=== PATIENT | male | born 1940 | race Caucasian/White ===

== ENCOUNTER → 2016-09-13 | Outpatient (CLI) | payer MEDICARE, OTHER ==
[~2016-09-13] MED LIST: AMLO10TA82 PO; AMLO5TAB2 PO; ASP325T PO; CHLO500T4 PO; CLPD75T PO; CPR500T PO; CYAN250010 PO; E400C PO; ENAL10TA PO; FISH1CAP15 PO; FNST5T PO; GUAI600T PO; HYDR-3812 PO; HYDR-91 PO; METO50TA7; MTP25TSR PO; MULT-608 PO; NAPR500T3 PO; NITR0.4T12 SL; NITR100C3 PO; OMEG1CAP51 PO; OMG1KC PO; PRAV40TA PO; PRAV80TA2 PO; RANO10003 PO; RANO500T3 PO; TMSL.4C PO; VITA1CAP59 PO; Vitamin B-6 PO
[2016-09-13 09:10] LABS: ALBUMIN 4.2 G/DL (3.2-4.5); BILIRUBIN,DIRECT 0.3 MG/DL (0.0-0.3); BILIRUBIN,INDIRECT 0.5 MG/DL; BILIRUBIN,TOTAL 0.8 MG/DL (0.1-1.0); TOTAL PROTEIN 6.7 G/DL (6.4-8.2)
== END ==
LOC: LAB 08:19
PROVIDERS: ATTEND Physician Assistant
DX: I25.10 Atherosclerotic heart disease of native coronary artery without angina pectoris (principal); I65.23 Occlusion and stenosis of bilateral carotid arteries; I10 Essential (primary) hypertension; E78.2 Mixed hyperlipidemia
CPT/HCPCS: 36415; 80061; 80076

== ENCOUNTER → 2016-11-01 | Outpatient (CLI) | payer MEDICARE, OTHER ==
--- NOTE | 2016-11-04 00:07 | ECHOCARDIOGRAPHY REPORT ---
PROCEDURE PHYSICIAN: YAIMA BRICEÑO DATE OF PROCEDURE: 11/01/2016 TWO DIMENSIONAL ECHOCARDIOGRAM REPORT PRIMARY PHYSICIAN: OTHER PHYSICIAN: REFERRING PHYSICIAN: Dr. Geovanna Hernández ORDERING PHYSICIAN: INDICATION FOR THE PROCEDURE: Coronary artery disease. MEASUREMENTS DERIVED VALUES LV DIAMETER (LAX) NORMALS NORMALS Diastolic 5.1 (3.6-5.2) Eject. Fract. 60% (60%+/-6%) Systolic (2.3-3.9) Diastolic Vol. % Shortening (0.22-0.42) Systolic Vol. Aortic Root IVS THICKNESS Diastolic 1.2 (0.6-1.1) LVPW THICKNESS Diastolic 1.1 (0.6-1.1) LA DIAMETER Systolic 3.7 (2.1-3.7) FINDINGS: 1. Technically suboptimal study. 2. The left ventricle is normal in size, endocardium was not well visualized in all segments. Overall, mild left ventricular hypertrophy was noted. Systolic function appeared to be normal. Estimated ejection fraction 60%. 3. The left atrium is normal in size. No clot or thrombus were seen within the left atrium. 4. The right atrium and right ventricle are normal in size. No clot or thrombus were seen within the right side. 5. Mitral valve is normal in morphology with mild mitral regurgitation noted by color Doppler flow. No mitral valve prolapse. No mitral valve stenosis. 6. Aortic valve is trileaflet with normal opening and closing pattern. No significant aortic stenosis or regurgitation was seen. 7. Tricuspid valve is normal in morphology with mild tricuspid regurgitation noted by color Doppler flow. Doppler across tricuspid valve estimated pulmonary artery pressure of 23+ right atrial pressure. 8. Pulmonic valve is functioning normally. 9. No pericardial effusion was noted. IN CONCLUSION: 1. Technically suboptimal study. 2. Mild left ventricular hypertrophy with normal systolic function. Estimated ejection fraction 60%. 3. Mild mitral and tricuspid regurgitation. 4. Estimated pulmonary artery pressure of 30 mmHg. Job ID: [id number] Dictated Date: 11/03/2016 10:49:40 Cream Maker Date: 11/04/2016 00:03:37 / rema
== END ==
LOC: CARD 13:35
PROVIDERS: ATTEND Physician Assistant
DX: I25.10 Atherosclerotic heart disease of native coronary artery without angina pectoris (principal); I65.23 Occlusion and stenosis of bilateral carotid arteries; I10 Essential (primary) hypertension; E78.2 Mixed hyperlipidemia
CPT/HCPCS: 93306

== ENCOUNTER → 2016-11-11 | Outpatient (CLI) | payer MEDICARE, OTHER ==
[~2016-11-11] VITALS: Ht 177.8 cm; Wt 96.6 kg
[~2016-11-11] MED LIST changes: +REGADENOSON 0.4 MG/5 ML SYR (LEXISCAN) IV ONE
[2016-11-11] MEDS: CATHETER FLUSH 10 ML SYR IV PRN ×2 (08:09→09:33)
[2016-11-11 09:32] VITALS: BP 154/78
--- NOTE | 2016-11-11 11:28 | STRESS TEST ---
PROCEDURE PHYSICIAN: YAIMA BRICEÑO LEXISCAN MYOVIEW STRESS TEST REPORT: DATE OF PROCEDURE: 11/11/2016 REFERRING PHYSICIAN: Dr. Geovanna Hernández, [facility]. INDICATION: Coronary artery disease, hypertension Baseline heart rate is 48, baseline blood pressure: 156/76. Baseline EKG: Sinus rhythm with no ischemic changes. SUMMARY: The patient was injected with 10.84 mCi of technetium 99 Myoview and the resting images were obtained. Then the patient received 0.4 mg of Lexiscan followed by 31.9 mCi of technetium 99 Myoview. Throughout the test, there were no significant EKG changes. The resting and stress images were reviewed and compared in the short axis, horizontal long axis, and vertical long axis views. Review of the images showed diaphragmatic attenuation affecting the quality of the images, there is no significant ischemia or infarction on SPECT images. SSS is 1, SDS 1, TID value 0.97. On the gated images, the left ventricle appeared to be normal size with normal contractility. Calculated ejection fraction 59%. CONCLUSION: 1. The patient tolerated Lexiscan well. 2. Diaphragmatic attenuation with no significant ischemia or infarction on SPECT images. 3. Normal left ventricular size with normal contractility. Calculated ejection fraction 59% Job ID: [id number] Dictated Date: 11/11/2016 11:08:05 Bet Taker Date: 11/11/2016 11:24:57 / tr
== END ==
LOC: CARD 07:57
PROVIDERS: ATTEND Physician Assistant
DX: I25.10 Atherosclerotic heart disease of native coronary artery without angina pectoris (principal); I65.23 Occlusion and stenosis of bilateral carotid arteries; I10 Essential (primary) hypertension; E78.2 Mixed hyperlipidemia
CPT/HCPCS: 78452; 93017

== ENCOUNTER 2017-04-24 09:44 | Day surgery (SDC) | payer MEDICARE ==
[~2017-04-24] VITALS: Ht 177.8 cm; Wt 91.6 kg
[2017-04-24] VITALS (9 sets, daily range): BP systolic 119–154; BP diastolic 3–83
[~2017-04-24 09:44] MED LIST changes: -NAPR500T3 PO; +NAPR500T4 PO; -REGADENOSON 0.4 MG/5 ML SYR (LEXISCAN) IV ONE
--- OUTSIDE RECORDS SUMMARY | 2017-04-24 09:52 | XMS REPORT ---
Author Author STEPAN MODI [facility] Address [address] [place] [address] Care Team Providers Care Sugar Coating Hand Name Role Phone LY STEPAN Unavailable PROBLEMS Type Condition ICD9-CM Code [id number] Code Onset Dates Condition Status SNOMED Code Problem Hyperlipidemia, mixed E78.2 Active 470116792 Problem Hypertension, benign I10 Active 66229989 Assessment Encounter for immunization Z23 Apr, Active 522165592 Problem Arthritis M19.90 Active 1107927 Assessment Pain of left heel M79.672 Apr, Active 0816120 ALLERGIES Substance Reaction Event Type Date Status N.K.D.A. Unknown Non Drug Allergy Apr, Unknown SOCIAL HISTORY No smoking Hx information available PLAN OF CARE VITAL SIGNS Height 70 in 2016-05-13 Weight 202.6 lbs 2016-05-13 Heart Rate 64 bpm 2016-05-13 Respiratory Rate 18 2016-05-13 BMI 29.07 kg/m2 2016-05-13 Blood pressure systolic 136 mmHg 2016-05-13 Blood pressure diastolic 78 mmHg 2016-05-13 MEDICATIONS Medication Instructions Dosage Frequency Start Date End Date Duration Status Fish Oil 1200 MG Orally Once a day 5 capsule 24h Active Amlodipine Besylate 10 MG TAKE ONE TABLET BY MOUTH DAILY 30 Active Pravastatin Sodium 40 MG Orally Once a day 1 tablet 24h Active Enalapril Maleate 10 MG TAKE ONE TABLET BY MOUTH TWICE DAILY 30 Active Naproxen 500 MG Orally every 12 hrs 1 tablet as needed 12h 17 Sep, 2015 Active Ranexa 500 MG 2 tablets 12h Feb, Active PredniSONE 20 mg Orally Once a day 2 tablets 24h Apr, May, 05 days Active Multivitamins 750 mg Orally once a day one capsule 24h Active RESULTS Name Result Date Reference Range Xray : Calcaneus, Left (IN HOUSE) 2016-05-13 PROCEDURES Procedure Date Ordered Related Diagnosis Body Site [facility] VISIT ESTABLISHED PATIENT May 13, 2016 Office Visit, Est Pt., Level 3 May 13, 2016 FLUZONE HIGH DOSE 65 AND UP 2015May 13, 2016 X-RAY EXAM OF HEEL May 13, 2016 SINGLE IMMUNIZATION ADMIN May 13, 2016 IMMUNIZATIONS Vaccine Route Administration Date Status FLUZONE HIGH DOSE 65 AND UP 2015 IM Intramuscular May 13, 2016 Administered
[2017-04-24] MEDS ORDERED: morphine INJ 10 MG/ML 1ML (SYR OR VIAL) IV STA (09:54)
--- NOTE | 2017-04-24 09:54 | ED Chest Pain ---
General Chief Complaint: Chest Pain Stated Complaint: CHEST PAIN/SOA Source: patient, spouse Exam Limitations: no limitations History of Present Illness Time seen by provider: 09:51 Initial Comments Patient has ER by private conveyance with chief complaint of one week intermittent mid sternal chest pressure and today now present with some shortness of breath. He says is the same way present before he had a heart attack several years ago when he had a stent placed by Dr. Shrestha. He is only on aspirin but no blood thinners. He has not had any nausea vomiting numbness tingling or sweats however he says this is the same way he presented last time. He says for 5 months ago he was having chest pressure like this and Dr. Shrestha increased his Ranexa from 500-1000 and that took care of the chest pressures until the last week. Allergies and Home Medications Allergies Coded Allergies: No Known Drug Allergies (Verified , 08/01/09) Home Medications Amlodipine Besylate 10 Mg Tablet, 10 MG PO DAILY, (Reported) Aspirin 325 Mg Tab, 325 MG PO HS, (Reported) Cyanocobalamin (Vitamin B-12) 2,500 Mcg Tablet, 2,500 MCG PO DAILY, (Reported) Enalapril Maleate 10 Mg Tablet, 10 MG PO BID, (Reported) Multivitamins 1 Tab Tablet, 1 TAB PO DAILY, (Reported) [place] 3 Polyunsat Fatty Acids 1,000 Mg Cap, 3,000 MG PO DAILY, (Reported) [place] 3 Polyunsat Fatty Acids 1,000 Mg Cap, 2,000 MG PO HS, (Reported) Pravastatin Sodium 80 Mg Tablet, 80 MG PO HS, (Reported) Ranolazine 1,000 Mg Tab.er.12h, 1,000 MG PO BID, (Reported) Vitamin E Acetate 400 Unit Capsule, 400 UNIT PO DAILY, (Reported) Review of Systems Constitutional: No chills, No diaphoresis, No fever, No malaise EENTM: No Eye Pain, No Ear Pain Respiratory: Denies Cough, Denies Shortness of Air Cardiovascular: See HPI, Chest Pain, Denies Palpitations, Denies Syncope Gastrointestinal: Denies Constipated, Denies Diarrhea, Denies Nausea, Denies Vomiting Genitourinary: Denies Discharge, Denies Drainage Musculoskeletal: No back pain, No joint pain Skin: No pruritus, No rash Psychiatric/Neurological: Denies Numbness, Denies Paresthesia Past Huckmyg-Majmkf-Fseodb Hx Immunizations Up To Date Date of Pneumonia Vaccine: Aug 18, 2007 Date of Influenza Vaccine: May 18, 2015 Reproductive System Hx Reproductive Disorders: No Sexually Transmitted Disease: No Genitourinary Genitourinary Disorders: Benign Prostatic Hyperpl, Prostate Problems, Kidney Stones Musculoskeletal Musculoskeletal Disorders: Arthritis Family Medical History Significant Family History: No Pertinent Family Hx Physical Exam Vital Signs Vital Sign - Last 12Hours 04/24/17 09:45 Temp 98.2 Pulse 69 Resp 18 B/P (MAP) 172/105 Capillary Refill : General Appearance: WD/WN, Anxious, Mild Distress HEENT: Normal ENT Inspection, Pharynx Normal Neck: Normal Inspection, Non Tender, Supple Respiratory: Chest Non Tender, Lungs Clear, Normal Breath Sounds Cardiovascular: Regular Rate, Rhythm, No Edema, Normal Peripheral Pulses Gastrointestinal: Normal Bowel Sounds, Non Tender, Soft Extremity: Normal Capillary Refill, Normal Inspection, No Pedal Edema Neurologic/Psychiatric: Alert, Oriented x3 Skin: Normal Color, Warm/Dry Progress/Results/Core Measures Results/Orders Lab Results Laboratory Tests Test 04/24/17 09:50 Range/Units White Blood Count 5.7 4.3-11.0 10^3/uL Red Blood Count 4.74 4.35-5.85 10^6/uL Hemoglobin 14.9 13.3-17.7 G/DL Hematocrit 43 40-54 % Mean Corpuscular Volume 92 80-99 FL Mean Corpuscular Hemoglobin 31 25-34 PG Mean Corpuscular Hemoglobin Concent 34 32-36 G/DL Red Cell Distribution Width 13.5 10.0-14.5 % Platelet Count 207 130-400 10^3/uL Mean Platelet Volume 11.5 H 7.4-10.4 FL Neutrophils (%) (Auto) 53 42-75 % Lymphocytes (%) (Auto) 31 12-44 % Monocytes (%) (Auto) 10 0-12 % Eosinophils (%) (Auto) 5 0-10 % Basophils (%) (Auto) 1 0-10 % Neutrophils # (Auto) 3.1 1.8-7.8 X 10^3 Lymphocytes # (Auto) 1.8 1.0-4.0 X 10^3 Monocytes # (Auto) 0.6 0.0-1.0 X 10^3 Eosinophils # (Auto) 0.3 0.0-0.3 10^3/uL Basophils # (Auto) 0.0 0.0-0.1 10^3/uL Prothrombin Time 13.2 12.2-14.7 SEC INR Comment 1.0 0.8-1.4 Activated Partial Thromboplast Time 27 24-35 SEC Sodium Level 141 135-145 MMOL/L Potassium Level 4.2 3.6-5.0 MMOL/L Chloride Level 108 H 98-107 MMOL/L Carbon Dioxide Level 24 21-32 MMOL/L Anion Gap 9 5-14 MMOL/L Blood Urea Nitrogen 12 7-18 MG/DL Creatinine 0.83 0.60-1.30 MG/DL Estimat Glomerular Filtration Rate > 60 BUN/Creatinine Ratio 14 Glucose Level 103 70-105 MG/DL Calcium Level 9.6 8.5-10.1 MG/DL Magnesium Level 2.0 1.8-2.4 MG/DL Total Bilirubin 0.9 0.1-1.0 MG/DL Aspartate Amino Transf (AST/SGOT) 17 5-34 U/L Alanine Aminotransferase (ALT/SGPT) 22 0-55 U/L Alkaline Phosphatase 53 40-136 U/L Myoglobin 36.8 10.0-92.0 NG/ML Troponin I < 0.30 <0.30 NG/ML Total Protein 6.7 6.4-8.2 GM/DL Albumin 4.1 3.2-4.5 GM/DL My Orders Orders - BETTYE,FERDINAND J Ekg Tracing (04/24/17 09:48) Cbc With Automated Diff (04/24/17 09:54) Magnesium (04/24/17 09:54) Chest 1 View, Ap/Pa Only (04/24/17 09:54) Cardiac Profile 1 (04/24/17 09:54) Comprehensive Metabolic Panel (04/24/17 09:54) Myoglobin Serum (04/24/17 09:54) Protime With Inr (04/24/17 09:54) Partial Thromboplastin Time (04/24/17 09:54) O2 (04/24/17 09:54) Monitor-Rhythm Ecg Trace Only (04/24/17 09:54) Lipid Panel (04/25/17 06:00) Aspirin Chewable Tablet (Baby Aspirin Ch (04/24/17 10:00) Rx-Nitroglycerin Sl Tabs (Rx-Nitrostat S (04/24/17 10:00) Morphine Injection (Morphine Injection (04/24/17 09:54) Saline Lock/Iv-Start (04/24/17 09:54) Enoxaparin Injection (Lovenox Injection) (04/24/17 11:45) Medications Given in ED Current Medications Medications Dose Ordered Sig/Daniel Route Start Time Stop Time Status Last Admin Dose Admin Aspirin 324 mg ONCE ONCE PO 04/24/17 10:00 04/24/17 10:01 DC 04/24/17 10:04 324 MG Nitroglycerin 0.4 mg PRN PRN SL 04/24/17 10:00 04/24/17 12:38 DC 04/24/17 10:04 0.4 MG Vital Signs/I&O Vital Sign - Last 12Hours 04/24/17 04/24/17 04/24/17 09:45 09:45 09:45 Temp 98.2 Pulse 69 Resp 18 B/P (MAP) 172/105 Pulse Ox 97 97 O2 Delivery Nasal Cannula Nasal Cannula O2 Flow Rate 2.00 2.0 ECG Initial ECG Impression Date: Apr 24, 2017 Initial ECG Impression Time: 09:49 Initial ECG Rate: 69 Initial ECG Rhythm: Normal Sinus Initial ECG Intervals: Normal Initial ECG Impression: Nonspecific Changes Initial ECG Comparisson: Unchanged Comment No acute ST elevation or depression Diagnostic Imaging Diagonstic Imaging: Xray Plain Films/CT/US/NM/MRI: chest Comments VIA [place], [place] NAME: DAIJA ADHIKARI [facility] REC#: [id number] PT STATUS: REG ER : 1940 PHYSICIAN: FERDINAND WEN MD ADMIT DATE: 04/24/17/ER Draft Date of Exam:04/24/17 CHEST 1 VIEW, AP/PA ONLY EXAMINATION: CHEST 1 VIEW, AP/PA ONLY INDICATION: Chest pain. Shortness of breath. COMPARISON: Chest radiograph 11/16/2014. FINDINGS: Normal heart size and pulmonary vascularity. Mild atelectasis or infiltrate in the medial right lung base. No dense consolidation, pleural effusion, or pneumothorax. Calcified aorta. No acute osseous findings. IMPRESSION: Mild atelectasis or infiltrate in the medial right lung base. There is no dense consolidation. Dictated on workstation # [id number] Dict: 04/24/17 1026 Trans: 04/24/17 1030 [facility] [id number] Interpreted by: CALOS OSULLIVAN MD Electronically signed by: Reviewed: Reviewed by Me Departure Communication (Admissions) Time/Spoke to Admitting Phy: 11:[address] Susna Mata is okay with admission but would like us to speak with Dr. Shrestha see if maybe the patient to the catheter today. Time/Spoke to Consulting Phy: 11:30 Communication/Consulting Dr Shrestha: Lovenox is okay and he'll see the patient but he does not feel the patient needs any emergent catheter however he might go have time to get him in later today. Impression Impression: Primary Impression: Chest pain Qualified Codes: R07.9 - Chest pain, unspecified Additional Impressions: Chest tightness or pressure ACS (acute coronary syndrome) Disposition: ADMITTED INPATIENT (observation) Condition: Stable Admissions Decision to Admit Reason: Admit from ER (General) Decision to Admit/Date: Apr 24, 2017 Time/Decision to Admit Time: 11:31 Departure-Patient Inst. Referrals: LATISHA THOMSON DO (PCP) Primary Care Physician STEPAN MODI (Family) Primary Care Physician Copy Copies To 1: LATISHA THOMSON TITUS J Apr 24, 2017 09:54
[2017-04-24] MEDS ORDERED: ASPIRIN 81 MG CHEW (CHILDREN'S ASA) PO ONE (10:00)
[2017-04-24] MEDS ORDERED: RX-NITROGLYCERIN 0.4 MG TAB BTL 25'S SL PRN (10:00)
[2017-04-24 10:07] LABS: BASOPHILS % (AUTO) 1 % (0-10); EOSINOPHILS # (AUTO) 0.3 10^3/uL (0.0-0.3); EOSINOPHILS % (AUTO) 5 % (0-10); LYMPHOCYTES # (AUTO) 1.8 X 10^3 (1.0-4.0); LYMPHOCYTES % (AUTO) 31 % (12-44); MEAN CORPUSCULAR HEMOGLOBIN 31 PG (25-34); MEAN CORPUSCULAR HGB CONC 34 G/DL (32-36); MEAN CORPUSCULAR VOLUME 92 FL (80-99); MEAN PLATELET VOLUME 11.5 FL (7.4-10.4); MONOCYTES # (AUTO) 0.6 X 10^3 (0.0-1.0); MONOCYTES % (AUTO) 10 % (0-12); NEUTROPHILS # (AUTO) 3.1 X 10^3 (1.8-7.8); NEUTROPHILS % (AUTO) 53 % (42-75); PLATELET COUNT 207 10^3/uL (130-400); RED BLOOD COUNT 4.74 10^6/uL (4.35-5.85); RED CELL DISTRIBUTION WIDTH 13.5 % (10.0-14.5); WHITE BLOOD COUNT 5.7 10^3/uL (4.3-11.0)
[2017-04-24 10:24] LABS: PROTHROMBIN TIME PATIENT 13.2 SEC (12.2-14.7)
[2017-04-24 10:29] LABS: ALANINE AMINOTRANSFERASE 22 U/L (0-55); ALBUMIN 4.1 GM/DL (3.2-4.5); ANION GAP 9 MMOL/L (5-14); ASPARTATE AMINO TRANSFERASE 17 U/L (5-34); BILIRUBIN,TOTAL 0.9 MG/DL (0.1-1.0); BLOOD UREA NITROGEN 12 MG/DL (7-18); BUN/CREATININE RATIO 14; CALCIUM 9.6 MG/DL (8.5-10.1); CARBON DIOXIDE 24 MMOL/L (21-32); CHLORIDE 108 MMOL/L (98-107); CREATININE SERUM 0.83 MG/DL (0.60-1.30); GFR ESTIMATED > 60; GLUCOSE 103 MG/DL (70-105); POTASSIUM 4.2 MMOL/L (3.6-5.0); SODIUM 141 MMOL/L (135-145); TOTAL PROTEIN 6.7 GM/DL (6.4-8.2)
--- NOTE | 2017-04-24 10:31 | Diagnostic Imaging Report ---
EXAMINATION: CHEST 1 VIEW, AP/PA ONLY INDICATION: Chest pain. Shortness of breath. COMPARISON: Chest radiograph 11/16/2014. FINDINGS: Normal heart size and pulmonary vascularity. Mild atelectasis or infiltrate in the medial right lung base. No dense consolidation, pleural effusion, or pneumothorax. Calcified aorta. No acute osseous findings. IMPRESSION: Mild atelectasis or infiltrate in the medial right lung base. There is no dense consolidation. Dictated by: Dictated on workstation # [id number]
[2017-04-24 10:36] LABS: MYOGLOBIN SERUM 36.8 NG/ML (10.0-92.0)
[2017-04-24] MEDS ORDERED: ENOXAPARIN 100 MG/1 ML (LOVENOX) SYR SC ONE (11:45)
[2017-04-24] MEDS ORDERED: NS IV 1000 ML 0 ML ONE (12:31)
--- NOTE | 2017-04-24 12:40 | Consultation-Cardiology ---
HPI-Cardiology Cardiology Consultation Date of Consultation 04/24/17 Date of Admission Time Seen by Provider: 12:38 Indication: chest pain HPI 77 years old gentleman with extensive cardiac history, has been having increasing chest pain, I started him on Ranexa with improvement of his chest pain, on the last visit in October 2016 I increased Ranexa to 1000 mg twice daily and he felt significantly better until about a week ago when he started having more frequent episodes of chest pain on and off with exertion, recently started having shortness of breath with the chest pain, this morning had more significant episode where he felt dull achiness in the retrosternal area associated with shortness of breath and dizziness and lightheadedness. Patient came to the emergency room and felt better after sublingual nitroglycerin, currently laying down in bed but fairly anxious about his condition. Patient underwent extensive workup in the past. Currently having chest pain while on maximizing medical therapy. We discussed the management plan and I recommended evaluating his coronary anatomy with cardiac catheterization. Home Medications & Allergies Allergies: Coded Allergies: No Known Drug Allergies (Verified , 08/01/09) Home Medication List Reviewed: Yes AQZ-Icglbx-Aouzla Hx Patient Social History Marital Status: Employed/Student: retired Alcohol Use: Denies Use Recreational Drug Use: No Smoking Status: Never a Smoker Recent Foreign Travel: No Recent Infectious Disease Expo: No Recent Hopitalizations: No (SURGERIES/HEART STENT) Physical Abuse Screen: No Sexual Abuse: No Immunizations Up To Date Date of Pneumonia Vaccine: Aug 18, 2007 Date of Influenza Vaccine: May 18, 2015 Past Medical History Past medical history as discussed Family Medical History Significant Family History: No Pertinent Family Hx Family History: 19 FATHER Congenital disease 19 MOTHER Neoplasm (maybe colon cancer) Diabetes mellitus G8 BROTHER Neoplasm (lung cancer) Constitutional: see HPI, weakness EENTM: see HPI, no symptoms reported Respiratory: see HPI, No cough, dyspnea on exertion, No hemoptysis, No orthopnea, No phlegm, short of breath, No stridor, No wheezing, No other Cardiovascular: see HPI, chest pain, No edema, No Hx of Intervention, No palpitations, No syncope, No vascular heart diseas, No other Gastrointestinal: no symptoms reported, see HPI Genitourinary: no symptoms reported, see HPI Musculoskeletal: no symptoms reported, see HPI Skin: no symptoms reported, see HPI Psychiatric/Neurological: No Symptoms Reported, See HPI Reviewed Test Results Reviewed Test Results Lab Laboratory Tests Test 04/24/17 09:50 Range/Units White Blood Count 5.7 4.3-11.0 10^3/uL Red Blood Count 4.74 4.35-5.85 10^6/uL Hemoglobin 14.9 13.3-17.7 G/DL Hematocrit 43 40-54 % Mean Corpuscular Volume 92 80-99 FL Mean Corpuscular Hemoglobin 31 25-34 PG Mean Corpuscular Hemoglobin Concent 34 32-36 G/DL Red Cell Distribution Width 13.5 10.0-14.5 % Platelet Count 207 130-400 10^3/uL Mean Platelet Volume 11.5 H 7.4-10.4 FL Neutrophils (%) (Auto) 53 42-75 % Lymphocytes (%) (Auto) 31 12-44 % Monocytes (%) (Auto) 10 0-12 % Eosinophils (%) (Auto) 5 0-10 % Basophils (%) (Auto) 1 0-10 % Neutrophils # (Auto) 3.1 1.8-7.8 X 10^3 Lymphocytes # (Auto) 1.8 1.0-4.0 X 10^3 Monocytes # (Auto) 0.6 0.0-1.0 X 10^3 Eosinophils # (Auto) 0.3 0.0-0.3 10^3/uL Basophils # (Auto) 0.0 0.0-0.1 10^3/uL Prothrombin Time 13.2 12.2-14.7 SEC INR Comment 1.0 0.8-1.4 Activated Partial Thromboplast Time 27 24-35 SEC Sodium Level 141 135-145 MMOL/L Potassium Level 4.2 3.6-5.0 MMOL/L Chloride Level 108 H 98-107 MMOL/L Carbon Dioxide Level 24 21-32 MMOL/L Anion Gap 9 5-14 MMOL/L Blood Urea Nitrogen 12 7-18 MG/DL Creatinine 0.83 0.60-1.30 MG/DL Estimat Glomerular Filtration Rate > 60 BUN/Creatinine Ratio 14 Glucose Level 103 70-105 MG/DL Calcium Level 9.6 8.5-10.1 MG/DL Magnesium Level 2.0 1.8-2.4 MG/DL Total Bilirubin 0.9 0.1-1.0 MG/DL Aspartate Amino Transf (AST/SGOT) 17 5-34 U/L Alanine Aminotransferase (ALT/SGPT) 22 0-55 U/L Alkaline Phosphatase 53 40-136 U/L Myoglobin 36.8 10.0-92.0 NG/ML Troponin I < 0.30 <0.30 NG/ML Total Protein 6.7 6.4-8.2 GM/DL Albumin 4.1 3.2-4.5 GM/DL Physical Exam Vital Signs Vital Sign - Last 12Hours 04/24/17 09:45 Temp 98.2 Pulse 69 Resp 18 B/P (MAP) 172/105 Capillary Refill : Less Than 3 Seconds General Appearance: No Apparent Distress, WD/WN Eyes: Bilateral Eye Normal Inspection, Bilateral Eye PERRL, Bilateral Eye EOMI HEENT: PERRL/EOMI, TMs Normal, Normal ENT Inspection, Pharynx Normal Neck: Full Range of Motion, Normal Inspection, Non Tender, Supple, Carotid Bruit Respiratory: Chest Non Tender, Lungs Clear, Normal Breath Sounds, No Accessory Muscle Use, No Respiratory Distress Cardiovascular: Regular Rate, Rhythm, No Edema, No Gallop, No JVD, No Murmur, Normal Peripheral Pulses Gastrointestinal: Normal Bowel Sounds, No Organomegaly, No Pulsatile Mass, Non Tender, Soft Back: Normal Inspection, No CVA Tenderness, No Vertebral Tenderness Extremity: Normal Capillary Refill, Normal Inspection, Normal Range of Motion, Non Tender, No Calf Tenderness, No Pedal Edema Neurologic/Psychiatric: Alert, Oriented x3, No Motor/Sensory Deficits, Normal Mood/Affect Skin: Normal Color, Warm/Dry Lymphatic: No Adenopathy A/P-Cardiology Admission Diagnosis Accelerating angina Coronary artery disease Hypertension Hyperlipidemia Assessment/Plan Chest pain, accelerating angina, patient reported improvement after increasing Ranexa to 1000 mg twice daily but for the last week it became worse and associated with shortness of breath. Had significant episode this morning, I will proceed with cardiac catheterization possible PTCA Coronary artery disease, history of PTCA and stent done in 2008 using Promus 3.0x18 mm to the obtuse marginal, last cardiac catheterization was done in November 2014 showing patent stent in the obtuse marginal branch, mild disease in the LAD and circumflex artery, mild to moderate disease in the right coronary artery with 50 percent stenosis at the midportion, normal LV size and function. Planning to evaluate coronary anatomy. Labile hypertension, I will restart home medication monitor blood pressure History of sick sinus syndrome with intolerance to beta blockers, continue to monitor on telemetry Hyperlipidemia, restart home medication monitor lipid Intolerance to isosorbide with hypotension. Benign prostatic hypertrophy. Mild bilateral carotid stenosis. Continue to monitor Mild pedal edema-discussed salt and fluid restriction. Clinical Quality Measures AMI/AHF: ASA po Prior to arrival: No DVT/VTE Risk/Contraindication: Risk Factor Score Per Nursin RFS Level Per Nursing on Admit: 2=Moderate YAIMA BRICEÑO MD Apr 24, 2017 12:40
--- NOTE | 2017-04-24 12:40 | Cardiac Procedure Note-CS/ASA ---
Pre-Procedure Note Pre-Op Procedure Note H&P Reviewed The H&P was reviewed, patient examined and no changes noted. Date H&P Reviewed: Apr 24, 2017 Time H&P Reviewed: 12:40 Conscious Sedation Pre-Proced Time Reviewed: 12:40 ASA Class: 3 Airway Mallampati Classification: (beaver appropriate class) I. II. III, IV Lungs Heart ASA score ASA 1: a normal healthy patient ASA 2: a patient with a mild systemic disease (mid diabetes, controlled hypertension, obesity x ASA 3: a patient with a severe systemic disease that limits activity (angina , COPD, prior Myocardial infarction) ASA 4: a patient with an incapacitating disease that is a constant threat to life (CHF, renal failure) ASA 5: a moribund patient not expected to survive 24 hrs. (ruptured aneurysm) ASA 6: a declared brain patient whose organs are being harvested. For emergent operations, add the letter E after the classification Grade 3 Sedation Plan: Analgesia, Amnesia, Plan communicated to team members, Discussed options with patient/fam, Discussed risks with patient/fam Note The patient is an appropriate candidate to undergo the planned procedure, sedation, and anesthesia. The patient immediately re-assessed prior to indication. YAIMA BRICEÑO MD Apr 24, 2017 12:40
[2017-04-24] MEDS ORDERED: NS IV 1000 ML 1,000 ML IV SCH (12:45)
[2017-04-24] MEDS ORDERED: HEParin (CATH LAB) 2,000 ML IV ONE (12:56)
[2017-04-24] MEDS ORDERED: NITROGLYCERIN SUBLINGUAL 0.4 MG TAB (NITROSTAT) SL PRN (13:15)
[2017-04-24] MEDS ORDERED: morphine INJ 4 MG/ML 1 ML (VIAL/SYRINGE) IV PRN (13:15)
[2017-04-24] MEDS ORDERED: ACETAMINOPHEN 500 MG TAB (TYLENOL) PO PRN (13:15)
[2017-04-24] MEDS ORDERED: CATHETER FLUSH 10 ML SYR IV PRN (13:15)
[2017-04-24] MEDS ORDERED: ONDANSETRON 4 MG/2 ML (SDV) Z0FRAN IV PRN (13:15)
[2017-04-24] MEDS ORDERED: PRAV80TA2 PO (15:27)
[2017-04-24] MEDS ORDERED: OMG1KC PO ×2 (15:35)
[2017-04-24] MEDS ORDERED: RANO10003 PO (15:35)
[2017-04-24] MEDS ORDERED: MIDAZOLAM 5 MG/5 ML (VERSED) VIAL ONE (16:24)
[2017-04-24] MEDS ORDERED: NS IV 1000 ML 1,000 ML ONE (16:24)
[2017-04-24] MEDS ORDERED: fentaNYL INJECTION 100 MCG/2 ML AMP ONE (16:24)
--- NOTE | 2017-04-24 17:24 | Cardiac Cath Report ---
Cardiac Cath Report Physician (s)/Graphite Pan Drier Tender (s) Physician YAIMA BRICEÑO MD Pre-Procedure Diagnosis Pre-Procedure Diagnosis: chest pain Post-Procedure Note Procedure Start Date: Apr 24, 2017 Procedure Start Time: 17:20 Name of Procedure: left heart catheterization Findings/Procedure Note PROCEDURE NOTE: After explaining the procedure to the patient, all pros and cons were explained, all questions were answered. The patient signed the consent and then she was placed on the cardiac catheterization laboratory. The patient was placed on the cardiac catheterization laboratory. Groin was prepped SL fashion local anesthesia was used. Sheath placed in the artery. Ruby right and left catheter were used to access the coronary system. Pigtail was used to access the left ventricular cavity. Left ventriculogram was done At the end of the procedure the sheath was removed. Closure device was used FINDINGS: Hemodynamics LV 132/14, end-diastolic pressure of 14 Aorta 129/65 mean of 91 ANATOMY: Left Main is free of obstructive disease Left Anterior Descending is tortuous with mild disease nonobstructive disease Left Circumflex has a patent stent in the first obtuse marginal branch, small vessel disease in the proper circumflex artery distally Right Coronory Artery has [id number]-[id number] disease 40-50 percent stenosis at most in the mid and distal right coronary artery LV Gram was done, normal left ventricular size and contractility with estimated ejection fraction 60 percent CONCLUSION: 1. Patent stent in the first obtuse marginal branch, known to have Promus stent 3.018 mm. 2. Small vessel disease in the distal circumflex artery, nonobstructive disease 3. 40-50 percent stenosis in the mid right coronary artery, nonobstructive disease 4. Tortuous LAD with mild disease nonobstructive disease 5. Normal left ventricular size and systolic function estimated ejection fraction 60 percent DISCUSSION AND RECOMMENDATION: patient has been having chest pain probably due to small vessel disease, medical therapy is recommended no intervention is warranted. Anesthesia Type: Conscious Sedation Estimated blood loss (mL): 10 ml Contrast Amount: 70 ml Total Radiation Dose: 679 mGy Post-Procedure Diagnosis Post-operative diagnosis: Chest pain, nonspecific etiology Coronary artery disease Hypertension Hyperlipidemia YAIMA BRICEÑO MD Apr 24, 2017 17:24
[2017-04-24] MEDS ORDERED: PATIENT MAY USE OWN MEDS, ALL PO SCH (17:30)
[2017-04-24] MEDS ORDERED: ATORVASTATIN 40 MG (LIPITOR) TABLET PO SCH (21:00)
[2017-04-24] MEDS: NS IV 1000 ML 1,000 ML IV SCH (21:41)
[2017-04-24] MEDS: meTOprolol TARTRATE 25 MG (LOPRESSOR) TABLET PO SCH (21:41)
[2017-04-25] MEDS ORDERED: ENOXAPARIN 100 MG/1 ML (LOVENOX) SYR SC SCH
[2017-04-25 04:30] VITALS: BP 135/72
[2017-04-25] MEDS: NS IV 1000 ML 1,000 ML IV SCH ×2 (06:04→07:18)
[2017-04-25 06:32] LABS: BASOPHILS % (AUTO) 1 % (0-10); EOSINOPHILS # (AUTO) 0.2 10^3/uL (0.0-0.3); EOSINOPHILS % (AUTO) 3 % (0-10); LYMPHOCYTES # (AUTO) 1.9 X 10^3 (1.0-4.0); LYMPHOCYTES % (AUTO) 35 % (12-44); MEAN CORPUSCULAR HEMOGLOBIN 32 PG (25-34); MEAN CORPUSCULAR HGB CONC 34 G/DL (32-36); MEAN CORPUSCULAR VOLUME 92 FL (80-99); MEAN PLATELET VOLUME 11.7 FL (7.4-10.4); MONOCYTES # (AUTO) 0.5 X 10^3 (0.0-1.0); MONOCYTES % (AUTO) 9 % (0-12); NEUTROPHILS # (AUTO) 2.9 X 10^3 (1.8-7.8); NEUTROPHILS % (AUTO) 52 % (42-75); PLATELET COUNT 194 10^3/uL (130-400); RED BLOOD COUNT 4.31 10^6/uL (4.35-5.85); RED CELL DISTRIBUTION WIDTH 13.4 % (10.0-14.5); WHITE BLOOD COUNT 5.5 10^3/uL (4.3-11.0)
[2017-04-25 06:52] LABS: ANION GAP 9 MMOL/L (5-14); BLOOD UREA NITROGEN 13 MG/DL (7-18); BUN/CREATININE RATIO 16; CALCIUM 8.7 MG/DL (8.5-10.1); CARBON DIOXIDE 21 MMOL/L (21-32); CHLORIDE 111 MMOL/L (98-107); CREATININE SERUM 0.79 MG/DL (0.60-1.30); GFR ESTIMATED > 60; GLUCOSE 95 MG/DL (70-105); POTASSIUM 4.1 MMOL/L (3.6-5.0); SODIUM 141 MMOL/L (135-145)
[2017-04-25 06:56] LABS: CHOLESTEROL 150 MG/DL (< 200); DIRECT LDL 92 MG/DL (1-129); TRIGLYCERIDES 83 MG/DL (<150); VLDL CHOLESTEROL 17 MG/DL (5-40)
[2017-04-25 08:00] VITALS: BP 138/68
[2017-04-25] MEDS: meTOprolol TARTRATE 25 MG (LOPRESSOR) TABLET PO SCH (08:56)
[2017-04-25] MEDS ORDERED: ASPIRIN E.C. 325 MG (ECOTRIN) TABLET PO SCH (09:00)
[2017-04-25] MEDS ORDERED: lisINopril 10 MG (PRINIVIL) TAB PO SCH (09:00)
[2017-04-25] MEDS ORDERED: VITAMIN E 400 INTLU CAP PO SCH (09:56)
[2017-04-25] MEDS ORDERED: MULTIVIT W/MINERALS TAB (THERAGRAN M) PO SCH (10:04)
[2017-04-25] MEDS ORDERED: OMEGA 3 (FISH OIL) 1000 MG CAP PO SCH ×2 (10:10→21:00)
[2017-04-25] MEDS ORDERED: RANOLAZINE ER 500 MG TAB (RANEXA) PO SCH (10:11)
[2017-04-25] MEDS ORDERED: CYANOCOBALAMIN 500 MCG TAB (VITAMIN B-12) PO SCH (10:15)
--- NOTE | 2017-04-25 10:32 | Short Stay Summary ---
HPI History of Present Illness: 77 year old male with known CAD with hx of cardiac stent placed in 2008 presented with chest pain. Cardiology was consulted and the patient was taken to the photographic laboratory technician. The patient has known CAD and with angina unrelieved by rest. Source: patient, family Exam Limitations: no limitations Date seen by provider: Apr 25, 2017 Time Seen by Provider: 10:45 Attending Physician Susan Mata MD PCP Geovanna Hernández DO Consult Dr. Shrestha, Cardiology Date of Admission Apr 24, 2017 at 11:35 Home Medications Home Medications Reviewed patient Home Medication Reconciliation Form Allergies Coded Allergies: No Known Drug Allergies (Verified , 08/01/09) MCP-Mhyazy-Jsicyk Hx Patient Social History Marrital Status: Employed/Student: retired Alcohol Use: Denies Use Recreational Drug Use: No Smoking Status: Never a Smoker Recent Foreign Travel: No Contact w/other who traveled: No Recent Hopitalizations: No (SURGERIES/HEART STENT) Recent Infectious Disease Expo: No Physical Abuse Screen: No Sexual Abuse: No Immunizations Up To Date Tetanus Booster (TDap): Unknown Date of Pneumonia Vaccine: Aug 18, 2007 Date of Influenza Vaccine: May 18, 2015 Past Medical History CAD HTN Dyslipidemia Family Medical History Significant Family History: No Pertinent Family Hx Family History: Congenital disease 19 FATHER Diabetes mellitus 19 MOTHER Neoplasm 19 MOTHER (maybe colon cancer) G8 BROTHER (lung cancer) Review of Systems ([facility]) Constitutional: no symptoms reported EENTM: see HPI Respiratory: no symptoms reported Cardiovascular: no symptoms reported (no symptoms reported at the time of exam , pt with + chest pain at the time of presentation) Gastrointestinal: no symptoms reported Genitourinary: no symptoms reported Musculoskeletal: no symptoms reported Skin: no symptoms reported Psychiatric/Neurological: No Symptoms Reported Reviewed Test Results Reviewed Test Results Lab Laboratory Tests 04/25/17 06:[address] Shrestha done 04/24 - stent placed in 2008 remains patent, no interventions performed Physical Exam-([facility]) Physical Exam Vital Signs VS - Last 72 Hours, by Label 04/24/17 04/24/17 04/24/17 04/24/17 09:45 09:45 09:45 12:00 Temp 98.2 Pulse 69 50 Resp 18 18 B/P (MAP) 172/105 Pulse Ox 97 97 97 O2 Delivery Nasal Cannula Nasal Cannula Nasal Cannula O2 Flow Rate 2.00 2.0 2.00 04/24/17 04/24/17 04/24/17 04/24/17 12:15 15:05 16:00 17:45 Temp 98.1 Pulse 58 49 Resp 20 B/P (MAP) 154/80 124/70 Pulse Ox 95 94 O2 Delivery Room Air Nasal Cannula Room Air Room Air O2 Flow Rate 2.00 04/24/17 04/24/17 04/24/17 04/24/17 18:00 18:15 18:30 19:00 Pulse 49 50 47 49 B/P (MAP) 126/69 119/66 126/66 128/67 Pulse Ox 95 95 96 95 O2 Delivery Room Air 04/24/17 04/24/17 04/24/17 04/24/17 19:00 19:30 20:00 23:15 Temp 97.7 98.8 Pulse 46 66 49 51 Resp 20 20 B/P (MAP) 132/83 126/71 124/68 Pulse Ox 94 96 97 O2 Delivery Room Air Room Air 04/25/17 04/25/17 04/25/17 01:00 04:30 08:00 Temp 97.2 98.8 Pulse 43 53 63 Resp 18 20 B/P (MAP) 135/72 138/68 Pulse Ox 98 96 O2 Delivery Room Air Room Air Capillary Refill : Less Than 3 Seconds General Appearance: WD/WN, no apparent distress Eyes: Bilateral Eye Normal Inspection HEENT: normal ENT inspection, pharynx normal Neck: non-tender, full range of motion, supple Respiratory: chest non-tender, lungs clear, normal breath sounds, no respiratory distress Cardiovascular: normal peripheral pulses, regular rate, rhythm, no JVD, no murmur Gastrointestinal: non tender, soft Rectal: deferred Back: normal inspection, no vertebral tenderness Extremities: normal range of motion, non-tender, normal inspection, normal capillary refill, other (femoral cath site covered with clean, dry dressing; no evidence of active bleeding or hematoma) Neurologic/Psychiatric: new vehicle sales consultant II-XII nml as tested, alert, normal mood/affect, oriented x 3 Skin: normal color, warm/dry Lymphatic: no adenopathy Short Stay Diagnosis Discharge Diagnosis-Short Stay Admission Diagnosis Angina Final Discharge Diagnosis Coronary Artery Disease HTN Hyperlipidemia Conclusion Plan Patient had a no intervention cath performed yesterday evening. He tolerated the procedure well. This morning he is without chest pain or pressure, shortness of breath, palpitations, or any other complaints. He feels ready for discharge. We will discharge him to home with plans to have him follow up in the office on Friday at 3:00. Pt is not to be discharged until cleared by cardiology for discharge to home as well. Clinical Quality Measures AMI/AHF: ASA po Prior to arrival: No DVT/VTE Risk/Contraindication: Risk Factor Score Per Nursin RFS Level Per Nursing on Admit: 2=Moderate ELIAS SALEH DO Apr 25, 2017 10:32
[2017-04-25] MEDS ORDERED: METO-333 PO (10:41)
--- NOTE | 2017-04-25 10:50 | Discharge Instructions ---
Discharge [facility] Discharge Medications New, Converted or Re-Newed RX: Transmitted to Pharmacy New Medications: Metoprolol Tartrate (Metoprolol Tartrate) 25 Mg Tablet 25 MG PO BID for 30 Days, #60 TAB 1 Refill Continued Medications: Amlodipine Besylate (Norvasc Tablet) 10 Mg Tablet 10 MG PO DAILY, TAB Aspirin (Aspirin 325 Mg Tab) 325 Mg Tab 325 MG PO HS, TAB Cyanocobalamin (Vitamin B-12) (Vitamin B12) 2,500 Mcg Tablet 2500 MCG PO DAILY, TAB Enalapril Maleate (Enalapril Maleate) 10 Mg Tablet 10 MG PO BID, TAB Multivitamins (Multiple Vitamin) 1 Tab Tablet 1 TAB PO DAILY, TAB [place] 3 Polyunsat Fatty Acids (Fish Oil 1,000 mg Capsule) 1,000 Mg Cap 3000 MG PO DAILY, CAP [place] 3 Polyunsat Fatty Acids (Fish Oil 1,000 mg Capsule) 1,000 Mg Cap 2000 MG PO HS, CAP Pravastatin Sodium (Pravastatin Sodium) 80 Mg Tablet 80 MG PO HS, TAB Ranolazine (Ranexa) 1,000 Mg Tab.er.12h 1000 MG PO BID, TAB Vitamin E Acetate (Vitamin E) 400 Unit Capsule 400 UNIT PO DAILY, CAP Patient Instructions Goal/Follow Up Appt: Sunday 04/29 3:[address] Saleh at [facility] Please follow up with Dr. Shrestha per his instructions Patient Instructions: Take medications as directed Return to The Hospital For: chest pain or pressure, shortness of breath, fever > 100.4 unrelieved by tylenol, bleeding from cath site not controlled with pressure or if directed to return by microfabrication engineer manager provider Activity & Diet Discharge Diet: Low Sodium Diet, Cardiac Diet Activity as Tolerated: Yes ELIAS SALEH DO Apr 25, 2017 10:50
--- NOTE | 2017-04-25 11:00 | Cardiology Progress Note ---
Subjective Date Seen by Provider: Apr 25, 2017 Time Seen by Provider: 10:58 Subjective/Events-last exam patient is laying down in bed, feeling better, denied any active chest pain, no shortness of breath. Groin is healing well. Review of Systems General: No Chills, No Night Sweats, No Fatigue, No Malaise, No Appetite, No Other HEENT: No Head Aches, No Visual Changes, No Eye Pain, No Ear Pain, No Dysphasia , No Sinus Congestion, No Post Nasal Drip, No Sore Throat, No Other Pulmonary: No Dyspnea, No Cough, No Pleuritic Chest Pain, No Other Cardiovascular: No: Chest Pain, Palpitations, Orthopnea, Paroxysmal Noc. Dyspnea, Edema, Lt Headedness, Other Objective-Cardiology Exam Last Set of Vital Signs Vital Signs 04/24/17 04/25/17 15:05 08:00 Temp 98.8 Pulse 63 Resp 20 B/P (MAP) 138/68 Pulse Ox 96 O2 Delivery Room Air O2 Flow Rate 2.00 Capillary Refill : Less Than 3 Seconds I&O Intake and Output 04/26/17 00:00 Intake Total 1100 ml Balance 1100 ml Intake Oral 100 ml IV Total 1000 ml # Voids 1 General: Alert, Oriented X3, Cooperative HEENT: Atraumatic, PERRLA Neck: Supple, No JVD, No Thyromegaly Lungs: Clear to Auscultation, Normal Air Movement Heart: Regular Rate, Normal S1, Normal S2, Other (systolic murmur at the left sternal border) Abdomen: Normal Bowel Sounds, Soft, No Tenderness, No Hepatosplenomegaly, No Masses Extremities: No Clubbing, No Cyanosis, No Edema, Normal Pulses, No Tenderness/ Swelling Skin: No Rashes, No Breakdown, No Significant Lesion Neuro: Normal Gait, Normal Speech, Strength at 5/5 X4 Ext, Normal Tone, Sensation Intact Psych/Mental Status: Mental Status NL, Mood NL Results Lab Laboratory Tests 04/25/17 06:25 A/P-Cardiology Admission Diagnosis Accelerating angina Coronary artery disease Hypertension Hyperlipidemia Assessment/Plan Chest pain, resembling angina, cardiac catheterization done, no change compared to 2014. Medical therapy is recommended no intervention is needed Coronary artery disease, history of PTCA and stent done in 2008 using Promus 3.0x18 mm to the obtuse marginal, last cardiac catheterization was done in November 2014 showing patent stent in the obtuse marginal branch, mild disease in the LAD and circumflex artery, mild to moderate disease in the right coronary artery with 50 percent stenosis at the midportion, normal LV size and function, repeat cardiac catheterization was done yesterday showing patent stent in the circumflex artery, small proper circumflex artery with severe disease distally, not amendable to intervention, right coronary artery has 40-50 percent stenosis at the midportion. Medical therapy is recommended no intervention is needed Labile hypertension, continue on current home medication. Okay for discharge. History of sick sinus syndrome with intolerance to beta blockers, continue to monitor on telemetry Hyperlipidemia, restart home medication monitor lipid Intolerance to isosorbide with hypotension, we will use sublingual nitroglycerin as needed Benign prostatic hypertrophy. Mild bilateral carotid stenosis. Continue to monitor Mild pedal edema-discussed salt and fluid restriction. Okay for discharge from cardiology standpoint, groin is healing well. Educated in length about his condition and medical therapy. Clinical Quality Measures AMI/AHF: ASA po Prior to arrival: No DVT/VTE Risk/Contraindication: Risk Factor Score Per Nursin RFS Level Per Nursing on Admit: 2=Moderate YAIMA BRICEÑO MD Apr 25, 2017 11:00
[2017-04-25] MEDS ORDERED: NITR0.4T39 SL (11:02)
[2017-04-25] MEDS ORDERED: ENALAPRIL 10 MG (VASOTEC) TAB PO SCH (21:00)
[2017-04-25] MEDS ORDERED: ASPIRIN 325 MG (5 GR) TABLET PO SCH (21:00)
[2017-04-25] MEDS ORDERED: ATORVASTATIN 20 MG (LIPITOR) TABLET PO SCH (21:00)
[2017-04-26] MEDS ORDERED: amLODIPine 10 MG (NORVASC) TAB PO SCH (09:00)
== END 2017-04-25 11:46 | disposition home or self-care (01) ==
LOC: EDUNIT# 09:44 → ER 09:47 → UNDOADMOB 11:35 → CATH 11:35 → 4TH 11:35 → UNDOFXSDCACCOM 11:35 → UNDOFXSDCRRACCOM 11:35 → UNDOFXSDCSVC 11:35 → 4TH 11:35 → CATH 04-25 11:46 → 4TH 04-25 11:46 → UNDODISOB 04-25 11:46
PROVIDERS: ATTEND Pediatrics
DX: R07.89 Other chest pain (principal); I25.10 Atherosclerotic heart disease of native coronary artery without angina pectoris; I10 Essential (primary) hypertension; E78.5 Hyperlipidemia, unspecified; I49.5 Sick sinus syndrome; Z79.899 Other long term (current) drug therapy; Z95.5 Presence of coronary angioplasty implant and graft
CPT/HCPCS: 36415; 71010; 80048; 80053; 80061; 83735; 83874; 84484; 85025; 85610; 85730; 93005; 93041; 93458; 96372

== ENCOUNTER → 2017-12-15 | Outpatient (CLI) | payer MEDICARE ==
[~2017-12-15] MED LIST changes: +ACHD5005 PO; -HYDR-3812 PO; +METO-333 PO; +NAPR-915 PO; -NAPR500T4 PO; +NITR0.4T39 SL
[2017-12-15 08:20] LABS: ALANINE AMINOTRANSFERASE 17 U/L (0-55); ALKALINE PHOSPHATASE 44 U/L (40-136); BUN/CREATININE RATIO 26; CALCIUM 9.3 MG/DL (8.5-10.1); CARBON DIOXIDE 24 MMOL/L (21-32); CHLORIDE 114 MMOL/L (98-107); CHOLESTEROL 157 MG/DL (< 200); CREATININE SERUM 0.82 MG/DL (0.60-1.30); GFR ESTIMATED > 60; GLUCOSE 114 MG/DL (70-105); HDL CHOLESTEROL 55 MG/DL (40-60); POTASSIUM 4.3 MMOL/L (3.6-5.0); SODIUM 143 MMOL/L (135-145); TOTAL PROTEIN 6.6 GM/DL (6.4-8.2); TRIGLYCERIDES 57 MG/DL (<150); VLDL CHOLESTEROL 11 MG/DL (5-40)
== END ==
LOC: LAB 07:45
PROVIDERS: ATTEND Physician Assistant
DX: I25.10 Atherosclerotic heart disease of native coronary artery without angina pectoris (principal); I10 Essential (primary) hypertension; I49.5 Sick sinus syndrome; E78.5 Hyperlipidemia, unspecified
CPT/HCPCS: 36415; 80053; 80061

== ENCOUNTER → 2018-03-12 | Outpatient (CLI) | payer MEDICARE ==
[~2018-03-12] MED LIST changes: +CATHETER FLUSH 10 ML SYR IV PRN; +IOHEXOL 300 MG/ML 50 ML (OMNIPAQUE 300) VIAL IV ONE; +NS 100 ML (IVPB) BAG IV ONE
[2018-03-12 09:45] LABS: ALBUMIN 4.3 GM/DL (3.2-4.5); BILIRUBIN,TOTAL 0.9 MG/DL (0.1-1.0); CALCIUM 9.9 MG/DL (8.5-10.1); CREATININE SERUM 1.49 MG/DL (0.60-1.30); POTASSIUM 4.6 MMOL/L (3.6-5.0); TOTAL PROTEIN 7.3 GM/DL (6.4-8.2)
--- NOTE | 2018-03-12 12:42 | Diagnostic Imaging Report ---
PROCEDURE: CT abdomen and pelvis with and without contrast. TECHNIQUE: Precontrast acquisitions were acquired through the abdomen and pelvis. Multiple contiguous axial images were obtained through the abdomen and pelvis after the administration of intravenous contrast. INDICATION: Bilateral flank pain. FINDINGS: The previous CT abdomen/pelvis exam of 06/04/2011 noted nonobstructive calculi involving both kidneys as well as partial obstruction of the right collecting system due to a 7 mm calculus. On this exam, there are again numerous nonobstructive calculi within both kidneys. The largest calculus on the right measures 5.8 mm while the largest calculus on the left measures 3.7 mm. The ureters do not appear to be abnormally dilated, and there is no sign of obstruction of either collecting system. However, there is some distortion of the peripelvic fat about the left kidney. This is of uncertain etiology but does suggest mild edema/inflammation. The liver, spleen, pancreas, gallbladder, adrenals, aorta, and inferior vena cava show no sign of an acute abnormality. The cholelithiasis suggested on the prior exam cannot be identified on this study. The stomach is not well distended and consequently difficult to assess. The appendix was not well visualized, but there are no indirect signs of acute appendicitis. There is extensive diverticulosis of the sigmoid and distal descending colon, but there is no sign of acute diverticulitis. The urinary bladder is grossly unremarkable. The prostate gland is enlarged measuring 5.6 cm in maximum transverse diameter (normal 5 cm or less). The bone windows show no evidence for a fracture or for a destructive lesion. The lung bases are clear. IMPRESSION: 1. There are nonobstructive calculi involving both kidneys, but there is no evidence for obstruction of either collecting system. However, the distortion of the peripelvic fat on the left does raise the question of mild edema/inflammation. 2. There is no acute abnormality of the abdomen or pelvis noted otherwise. 3. The appendix was not well visualized, but there are no indirect signs of acute appendicitis. 4. There is extensive diverticulosis of the sigmoid and descending colon without evidence for acute diverticulitis. 5. There is no longer any evidence for cholelithiasis. Dictated by: Dictated on workstation # [id number]
== END ==
LOC: RAD 09:14
PROVIDERS: ATTEND Nurse Practitioner Community Health
DX: N20.0 Calculus of kidney (principal); K57.30 Diverticulosis of large intestine without perforation or abscess without bleeding
CPT/HCPCS: 36415; 74178; 80053

== ENCOUNTER → 2019-04-06 | Outpatient (CLI) | payer MEDICARE, OTHER ==
[~2019-04-06] MED LIST changes: -CATHETER FLUSH 10 ML SYR IV PRN; -IOHEXOL 300 MG/ML 50 ML (OMNIPAQUE 300) VIAL IV ONE; -NS 100 ML (IVPB) BAG IV ONE
== END ==
LOC: CARD 08:46
PROVIDERS: ATTEND Physician Assistant
DX: I25.10 Atherosclerotic heart disease of native coronary artery without angina pectoris (principal); I65.29 Occlusion and stenosis of unspecified carotid artery; I10 Essential (primary) hypertension; E78.5 Hyperlipidemia, unspecified
CPT/HCPCS: 93306

== ENCOUNTER → 2019-04-26 | Outpatient (CLI) | payer MEDICARE, OTHER ==
[~2019-04-26] VITALS: Ht 177.8 cm; Wt 91.2 kg
[~2019-04-26] MED LIST changes: +CATHETER FLUSH 10 ML SYR IV PRN
[2019-04-26 09:17] VITALS: BP 134/68
[2019-04-26 09:24] VITALS: BP 200/90
[2019-04-26 09:26] VITALS: BP 169/76
--- NOTE | 2019-05-03 10:47 | STRESS TEST ---
DATE OF SERVICE: EXERCISE MYOVIEW STRESS TEST REPORT REFERRING PHYSICIAN: [facility]. Baseline heart rate is 46. Baseline blood pressure 129/66. Baseline EKG is sinus rhythm with no ischemic changes. In summary, the patient was injected with 10.73 mCi of technetium-99 Myoview and the resting images were obtained. Then, the patient started exercising on standard [place] protocol. With peak exercise level, the patient was injected with 30.5 mCi of technetium-99 Myoview. EKG was showing minimal nondiagnostic changes. Blood pressure was 186/75. During recovery, heart rate and blood pressure returned to baseline. The resting and stress images were reviewed and compared in the short axis, horizontal long axis, and vertical long axis views. Review of the images showed diaphragmatic attenuation with typical male pattern with no significant ischemia or infarction. SSS is 4, SDS 3, TID value 0.98. On the gated images, the left ventricle appeared to be normal size with normal contractility. Calculated ejection fraction 58%. CONCLUSION: 1. Fair exercise tolerance, a total of 6 minutes 20 seconds on standard [place] protocol, total of 7.1 METS achieving 83% of maximum expected heart rate. 2. Severe hypertensive response to exercise with peak blood pressure 200/90 returned to baseline during recovery. 3. Minimal nondiagnostic EKG changes with exercise returned to baseline during recovery. 4. Diaphragmatic attenuation with typical male pattern with no significant ischemia or infarction on SPECT images. 5. Normal left ventricular size with normal contractility. Calculated ejection fraction 58%. Job ID: [id number] DocumentID: [id number] Dictated Date: 05/03/2019 08:04:25 Driver Manager Date: 05/03/2019 10:45:51 Dictated By: YAIMA BRICEÑO MD
== END ==
LOC: CARD 07:17
PROVIDERS: ATTEND Physician Assistant
DX: I25.10 Atherosclerotic heart disease of native coronary artery without angina pectoris (principal); I10 Essential (primary) hypertension; I65.29 Occlusion and stenosis of unspecified carotid artery; E78.5 Hyperlipidemia, unspecified
CPT/HCPCS: 78452; 93017

== ENCOUNTER → 2019-09-24 | Outpatient (CLI) | payer MEDICARE ==
[~2019-09-24] MED LIST changes: -CATHETER FLUSH 10 ML SYR IV PRN; +HOLD METFORMIN - RECEIVED CONTRAST 20 ML VIAL IV SCH; +IOHEXOL 350 MG/ML 100 ML (OMNIPAQUE 350) VIAL IV ONE; +NS 100 ML (IVPB) BAG IV ONE
--- NOTE | 2019-09-24 14:36 | Diagnostic Imaging Report ---
EXAMINATION: CT Chest with intravenous contrast. TECHNIQUE: Multiple contiguous axial images were obtained through the chest after the uneventful administration of intravenous contrast. All CT scans use one or more of the following dose optimizing techniques: automated exposure control, MA and/or KvP adjustment based on a patient size and exam type, or iterative reconstruction. HISTORY: Chronic bronchitis COMPARISON: None available. FINDINGS: There is no edema or pneumonia. No pleural effusion. No pneumothorax. There are approximately four pulmonary nodules, all measuring 5 mm and less in average diameter. No significant bronchial wall thickening or mucous plugging. Coronary arteries are moderately calcified. Heart size is normal. No pericardial effusion. Aorta is normal in caliber. There is no axillary or supraclavicular lymphadenopathy. There is no mediastinal lymphadenopathy. Tiny nonobstructing stones are seen in the kidneys. There is a small gallstone in the gallbladder. There are no suspicious osseus lesions. IMPRESSION: 1. Multiple small pulmonary nodules all measuring less than 5 mm. According to the Fleischner Society guidelines: In a low risk patient, no routine follow up is recommended. In a high risk patient, consider optional CT at 12 months. Dictated by: Dictated on workstation # [id number]
== END ==
LOC: RAD 11:56
PROVIDERS: ATTEND Nurse Practitioner Community Health
DX: J41.0 Simple chronic bronchitis (principal); R91.8 Other nonspecific abnormal finding of lung field
CPT/HCPCS: 71260

== ENCOUNTER → 2019-10-08 | Outpatient (CLI) | payer MEDICARE ==
[~2019-10-08] MED LIST changes: -HOLD METFORMIN - RECEIVED CONTRAST 20 ML VIAL IV SCH; -IOHEXOL 350 MG/ML 100 ML (OMNIPAQUE 350) VIAL IV ONE; -NS 100 ML (IVPB) BAG IV ONE; +RT-ALBUTEROL SULF 2.5 MG/3 ML PRE-MIX VIAL INH ONE
== END ==
LOC: RT 12:49
PROVIDERS: ATTEND Internal Medicine Critical Care Medicine
DX: J45.909 Unspecified asthma, uncomplicated (principal); G47.9 Sleep disorder, unspecified; Z82.0 Family history of epilepsy and other diseases of the nervous system; Z82.49 Family history of ischemic heart disease and other diseases of the circulatory system
CPT/HCPCS: 94060; 94726; 94729

== ENCOUNTER → 2019-10-22 | Outpatient (CLI) | payer MEDICARE, OTHER ==
[~2019-10-22] MED LIST changes: -RT-ALBUTEROL SULF 2.5 MG/3 ML PRE-MIX VIAL INH ONE
[2019-10-22 08:53] LABS: ALANINE AMINOTRANSFERASE 21 U/L (0-55); ALBUMIN 3.9 GM/DL (3.2-4.5); ALKALINE PHOSPHATASE 45 U/L (40-136); BILIRUBIN,TOTAL 0.8 MG/DL (0.1-1.0); BUN/CREATININE RATIO 18; CALCIUM 9.1 MG/DL (8.5-10.1); CARBON DIOXIDE 21 MMOL/L (21-32); CHLORIDE 110 MMOL/L (98-107); CHOLESTEROL 171 MG/DL (< 200); CREATININE SERUM 0.84 MG/DL (0.60-1.30); GFR ESTIMATED > 60; GLUCOSE 102 MG/DL (70-105); HDL CHOLESTEROL 60 MG/DL (40-60); POTASSIUM 4.1 MMOL/L (3.6-5.0); SODIUM 140 MMOL/L (135-145); TOTAL PROTEIN 6.3 GM/DL (6.4-8.2); TRIGLYCERIDES 72 MG/DL (<150); VLDL CHOLESTEROL 14 MG/DL (5-40)
== END ==
LOC: LAB 08:20
PROVIDERS: ATTEND Internal Medicine Cardiovascular Disease
DX: I25.10 Atherosclerotic heart disease of native coronary artery without angina pectoris (principal); I10 Essential (primary) hypertension; E78.5 Hyperlipidemia, unspecified; I49.5 Sick sinus syndrome
CPT/HCPCS: 36415; 80053; 80061

== ENCOUNTER → 2020-08-01 | Outpatient (CLI) | payer MEDICARE ==
[~2020-08-01] MED LIST changes: +CATHETER FLUSH 10 ML SYR IV PRN; +HOLD METFORMIN - RECEIVED CONTRAST 20 ML VIAL IV SCH; +IOHEXOL 350 MG/ML 100 ML (OMNIPAQUE 350) VIAL IV ONE; +NS 100 ML (IVPB) BAG IV ONE
[2020-08-01 09:04] LABS: ALANINE AMINOTRANSFERASE 29 U/L (0-55); ALBUMIN 3.9 GM/DL (3.2-4.5); ALKALINE PHOSPHATASE 63 U/L (40-136); BILIRUBIN,TOTAL 1.1 MG/DL (0.1-1.0); BUN/CREATININE RATIO 21; CALCIUM 8.9 MG/DL (8.5-10.1); CARBON DIOXIDE 22 MMOL/L (21-32); CHLORIDE 108 MMOL/L (98-107); CREATININE SERUM 0.99 MG/DL (0.60-1.30); GFR ESTIMATED > 60; GLUCOSE 96 MG/DL (70-105); SODIUM 141 MMOL/L (135-145); TOTAL PROTEIN 6.5 GM/DL (6.4-8.2)
--- NOTE | 2020-08-01 10:02 | Diagnostic Imaging Report ---
PROCEDURE: CT chest with contrast only. TECHNIQUE: Multiple contiguous axial images were obtained through the chest after administration of intravenous contrast. Auto Exposure Controls were utilized during the CT exam to meet ALARA standards for radiation dose reduction. INDICATION: Lung nodule The previous CT chest exam of 09/24/2019 noted multiple pulmonary nodules. Those nodules are again evident on this study and do not seem to have changed significantly. In the right lung there is a 3.3 mm nodule in the anterior aspect of the right upper lobe (image 60 of 159). At this same level there is apparent fissural nodule measuring 4.6. There is also another nodule along the medial aspect of the right upper lobe measuring 3.2 mm (image 607 of 159). A 4th nodule is also seen near the right hemidiaphragm. This measures 5.5 (image 108 of 159). In addition the images through the left lung show 3 nodules in the lingula. These measure 3.8 mm (image 90/158), 8 mm (image 91/159) and 6.4 mm (image 81 of 159). All these nodules seems similar to the prior exam. The lungs themselves are generally clear. There is no sign of failure, pneumonia or for a pleural effusion to indicate an acute abnormality. The heart size is within normal limits. There are coronary artery calcifications evident. The aorta is not abnormally dilated. There is no definite defect within the pulmonary arteries although the branches of the pulmonaries were not well opacified. There is no mediastinal or hilar adenopathy. The thyroid gland is generally unremarkable. The sections through the upper abdomen failed to show any sign of an acute abnormality. There are nonobstructive calculi involving both kidneys. The largest calculus on the right measures 5.4 mm, the large calculus on the left is estimated to be 5.6 mm. The bone windows show no evidence for a fracture or destructive lesion. IMPRESSION: 1. There is no acute cardiopulmonary abnormality. 2. The pulmonary nodules seen on the prior study are again evident and not significantly changed in size or appearance. Most likely they are benign. Even so, a six-month followup CT chest exam would be recommended for continued evaluation. 3. There is coronary artery disease. Dictated by: Dictated on workstation # [id number]
== END ==
LOC: RAD 09:45
PROVIDERS: ATTEND Nurse Practitioner Community Health
DX: I25.10 Atherosclerotic heart disease of native coronary artery without angina pectoris (principal); R91.8 Other nonspecific abnormal finding of lung field
CPT/HCPCS: 36415; 71260; 80053

== ENCOUNTER → 2020-11-22 | Outpatient (CLI) | payer MEDICARE ==
[~2020-11-22] MED LIST changes: -CATHETER FLUSH 10 ML SYR IV PRN; -HOLD METFORMIN - RECEIVED CONTRAST 20 ML VIAL IV SCH; -IOHEXOL 350 MG/ML 100 ML (OMNIPAQUE 350) VIAL IV ONE; -NS 100 ML (IVPB) BAG IV ONE
[2020-11-22 08:45] LABS: ALANINE AMINOTRANSFERASE 28 U/L (0-55); ALKALINE PHOSPHATASE 69 U/L (40-136); BILIRUBIN,TOTAL 0.8 MG/DL (0.1-1.0); BUN/CREATININE RATIO 22; CALCIUM 9.1 MG/DL (8.5-10.1); CARBON DIOXIDE 22 MMOL/L (21-32); CHLORIDE 109 MMOL/L (98-107); CHOLESTEROL 125 MG/DL (< 200); CREATININE SERUM 0.82 MG/DL (0.60-1.30); GFR ESTIMATED > 60; GLUCOSE 108 MG/DL (70-105); HDL CHOLESTEROL 47 MG/DL (40-60); POTASSIUM 4.1 MMOL/L (3.6-5.0); SODIUM 141 MMOL/L (135-145); TOTAL PROTEIN 6.8 GM/DL (6.4-8.2); TRIGLYCERIDES 48 MG/DL (<150); VLDL CHOLESTEROL 10 MG/DL (5-40)
== END ==
LOC: LAB 08:10
PROVIDERS: ATTEND Internal Medicine Cardiovascular Disease
DX: E78.2 Mixed hyperlipidemia (principal)
CPT/HCPCS: 36415; 80053; 80061

== ENCOUNTER → 2021-01-18 | Outpatient (CLI) | payer MEDICARE ==
--- NOTE | 2021-01-18 17:22 | Diagnostic Imaging Report ---
PROCEDURE: CT chest without contrast. TECHNIQUE: Multiple contiguous axial images were obtained through the chest without the use of intravenous contrast. Auto Exposure Controls were utilized during the CT exam to meet ALARA standards for radiation dose reduction. INDICATION: Lung mass. COMPARISON: Study of 08/01/2020. FINDINGS: Benign calcified granuloma in the right lower and left lower lobe, stable. Some infrahilar bilateral lower lobe cylindrical bronchiectasis, stable. Interfissural nodule along the right minor fissure at the right lung base, unchanged, likely small intramammary lymph node. A sub-solid nodule in the lingular segment of the left upper lobe laterally is unchanged, 5 mm. No new lung mass. No dominant lung lesion. There is some mild right upper lobe subpleural scarring, chronic. No thoracic lymphadenopathy. The aorta is nonaneurysmal. There is coronary artery atherosclerosis and vascular stenting. Upper abdomen shows nonobstructing nephrolithiasis with intact adrenal glands and a nonfocal partially visualized unenhanced liver. There is a tiny chronic pericardial effusion. There is no pleural effusion. IMPRESSION: 1. There is some chronic scarring and bronchiectasis and benign-appearing interfissural and subpleural nodule, stable from prior. No new suspect or dominant lung mass. No acute appearing abnormality or adverse development. 2. Nephrolithiasis, tiny pericardial effusion and coronary atherosclerosis, chronic. Dictated by: Dictated on workstation # [id number]
== END ==
LOC: RAD 15:45
PROVIDERS: ATTEND Nurse Practitioner Family
DX: R91.1 Solitary pulmonary nodule (principal); I31.3 Pericardial effusion (noninflammatory); I25.10 Atherosclerotic heart disease of native coronary artery without angina pectoris; N20.0 Calculus of kidney
CPT/HCPCS: 71250

== ENCOUNTER → 2021-01-23 | Outpatient (CLI) | payer MEDICARE ==
[~2021-01-23] MED LIST changes: +CATHETER FLUSH 10 ML SYR IV PRN; +HOLD METFORMIN - RECEIVED CONTRAST 20 ML VIAL IV SCH; +IOHEXOL 350 MG/ML 100 ML (OMNIPAQUE 350) VIAL IV ONE; +NS 100 ML (IVPB) BAG IV ONE
[2021-01-23 08:34] LABS: BUN/CREATININE RATIO 19; CREATININE SERUM 0.83 MG/DL (0.60-1.30); GFR ESTIMATED > 60
--- NOTE | 2021-01-23 11:18 | Diagnostic Imaging Report ---
PROCEDURE: CT chest with contrast only. TECHNIQUE: Multiple contiguous axial images were obtained through the chest after administration of intravenous contrast. Auto Exposure Controls were utilized during the CT exam to meet ALARA standards for radiation dose reduction. INDICATION: Lung nodule. FINDINGS: The recent CT chest exam performed on 01/18/2021 noted chronic scarring and bronchiectasis involving the lungs as well as a small intrafissural nodule in the right perihilar region. There also appeared to be a 5 mm nodule in the lateral segment of the left upper lobe. On this study, those nodules are again identified and unchanged in size or appearance. There are mild emphysematous changes involving both lungs but there is no evidence for failure, pneumonia, or pleural effusion. The heart size is within normal limits and stable when compared to the prior exam. There are coronary artery calcifications evident. 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 The aorta measures 4.1 x 4.2 cm (normal 4.0 x 4.0 cm or less). There is no sign of a dissection of the aorta. There is no defect within the pulmonary arteries to indicate a pulmonary embolus. There is no mediastinal or hilar adenopathy. The thyroid gland is obscured by streak artifact. The sections through the upper abdomen fail to show any sign of an acute abnormality. There do appear to be nonobstructive calculi within both kidneys. The bone windows are unremarkable for a fracture or for a destructive lesion. IMPRESSION: 1. There is no acute cardiopulmonary abnormality identified. In particular, there is no sign of a pulmonary embolus. 2. The pulmonary nodules seen previously are again evident and do not appear to have changed significantly. These nodules also seem stable when compared to the prior CT chest exam of 09/24/2019. Consequently, I do suspect that they are benign. Even so, a followup CT chest exam in 6-12 months would be recommended for continued evaluation. 3. There is borderline aneurysmal dilatation of the ascending aorta. 4. There are coronary artery calcifications evident. 5. There are nonobstructive calculi within both kidneys. Dictated by: Dictated on workstation # [id number]
== END ==
LOC: RAD 09:15
PROVIDERS: ATTEND Nurse Practitioner Family
DX: R91.8 Other nonspecific abnormal finding of lung field (principal); I25.10 Atherosclerotic heart disease of native coronary artery without angina pectoris; N20.0 Calculus of kidney
CPT/HCPCS: 36415; 71260; 82565; 84520

== ENCOUNTER 2021-05-25 14:42 | Emergency (ER) | payer MEDICARE ==
[~2021-05-25] VITALS: Ht 172.7 cm; Wt 93.0 kg
[~2021-05-25 14:42] MED LIST changes: -CATHETER FLUSH 10 ML SYR IV PRN; -HOLD METFORMIN - RECEIVED CONTRAST 20 ML VIAL IV SCH; -IOHEXOL 350 MG/ML 100 ML (OMNIPAQUE 350) VIAL IV ONE; -NS 100 ML (IVPB) BAG IV ONE
[2021-05-25] MEDS ORDERED: HYDROcodone/APAP 5 MG/325 MG (LORTAB) TAB PO ONE (15:15)
[2021-05-25] MEDS ORDERED: fentaNYL INJ 100 MCG/2 ML AMP IVP PRN (15:15)
--- NOTE | 2021-05-25 15:28 | ED Hip Pain/Injury ---
General Chief Complaint: Hip/Pelvic Problems Stated Complaint: HIP PAIN Nursing Triage Note: PT TO RM 1 VIA WC W REPORTS OF RT HIP PAIN X 2 WEEKS, UNABLE TO LIE FLAT OR STAND. PT HAS BEEN EVALUATED BY HIS DR AND TOLD THE XRAY DID NOT SHOW ANYTHING, US SCHEDULED FOR NEXT FRIDAY. PT HAS INCREASING PAIN, TO ED FOR FURTHER EVALUATION. PT A&OX4. Source: patient Exam Limitations: no limitations History of Present Illness Date Seen by Provider: May 25, 2021 Time Seen by Provider: 15:26 Initial Comments To ER with reports of right hip pain for 2 weeks. This began after he was up on a ladder lifting around the house to clean some gutters. No fall or particular injury. However as time has progressed he has developed a lot of pain in the right buttock right low back and down the right leg. He had some sort of imaging. Has seen primary care and also had some Toradol, Flexeril, Timing/Duration: constant Severity: moderate Method of Injury: unknown Associated Symptoms: denies symptoms Allergies and Home Medications Allergies Coded Allergies: No Known Drug Allergies (Verified , 08/01/09) Patient Home Medication List Home Medication List Reviewed: Yes Amlodipine Besylate (Norvasc Tablet) 10 Mg Tablet, 10 MG PO DAILY, (Reported) Entered as Reported by: JANETTE MILLER on 01/07/13 0328 Aspirin (Aspirin 325 Mg Tab) 325 Mg Tab, 325 MG PO HS, (Reported) Entered as Reported by: RICHA GRAFF on 05/25/12 1104 Cyanocobalamin (Vitamin B-12) (Vitamin B12) 2,500 Mcg Tablet, 2,500 MCG PO DAILY, (Reported) Entered as Reported by: NIRAJ CEJA on 06/15/15 1115 Enalapril Maleate (Enalapril Maleate) 10 Mg Tablet, 10 MG PO BID, (Reported) Entered as Reported by: RICHA DUGGAN on 05/27/10 1150 Metoprolol Tartrate (Metoprolol Tartrate) 25 Mg Tablet, 25 MG PO BID Prescribed by: ELIAS SALEH on 04/25/17 1041 Multivitamins (Multiple Vitamin) 1 Tab Tablet, 1 TAB PO DAILY, (Reported) Entered as Reported by: OTF STOCK on 08/07/11 1211 Nitroglycerin (Nitroglycerin) 0.4 Mg Tab.subl, 0.4 MG SL UD PRN for CHEST PAIN Prescribed by: YAIMA BRICEÑO on 04/25/17 1102 [place] 3 Polyunsat Fatty Acids (Fish Oil 1,000 mg Capsule) 1,000 Mg Cap, 3,000 MG PO DAILY, (Reported) Entered as Reported by: MORGAN GONSALES on 04/24/17 1535 [place] 3 Polyunsat Fatty Acids (Fish Oil 1,000 mg Capsule) 1,000 Mg Cap, 2,000 MG PO HS, (Reported) Entered as Reported by: MORGAN GONSALES on 04/24/17 1535 Oxycodone HCl/Acetaminophen (Oxycodone-Acetaminophen 5-325) 1 Each Tablet, 1 EACH PO Q4H PRN for PAIN-MODERATE Prescribed by: MANFRED YE on 05/25/21 1717 Pravastatin Sodium (Pravastatin Sodium) 80 Mg Tablet, 80 MG PO HS, (Reported) Entered as Reported by: MORGAN GONSALES on 04/24/17 1527 Ranolazine (Ranexa) 1,000 Mg Tab.er.12h, 1,000 MG PO BID, (Reported) Entered as Reported by: MORGAN GONSALES on 04/24/17 1535 Vitamin E Acetate (Vitamin E) 400 Unit Capsule, 400 UNIT PO DAILY, (Reported) Entered as Reported by: TEGAN WARD on 08/01/09 0916 Review of Systems Constitutional: see HPI EENTM: see HPI Respiratory: no symptoms reported Cardiovascular: no symptoms reported Genitourinary: no symptoms reported Musculoskeletal: see HPI Skin: no symptoms reported Psychiatric/Neurological: No Symptoms Reported Past Yofngfd-Sqqfvc-Rbeyvv Hx Immunizations Up To Date Tetanus Booster (TDap): Unknown PED Vaccines UTD: Yes Seasonal Allergies Seasonal Allergies: No Past Medical History Surgeries: Yes (inguinal hernia repair, prostate sx, stents) Respiratory: No Cardiac: Yes (1 heart stent) Neurological: No Reproductive Disorders: No Sexually Transmitted Disease: No Benign Prostatic Hyperpl, Prostate Problems, Kidney Stones Gastrointestinal: No Musculoskeletal: Yes Arthritis Endocrine: No HEENT: No Loss of Vision: Denies Hearing Impairment: Hard of Hearing Cancer: No Psychosocial: No Integumentary: No Blood Disorders: No Family Medical History Congenital disease 19 FATHER Diabetes mellitus 19 MOTHER Neoplasm 19 MOTHER (maybe colon cancer) G8 BROTHER (lung cancer) No Pertinent Family Hx Physical Exam Vital Signs Vital Signs - First Documented 05/25/21 14:57 Pulse 69 Resp 22 B/P (MAP) 164/84 (110) Pulse Ox 95 O2 Delivery Room Air Capillary Refill : Less Than 3 Seconds Height, Weight, BMI Height: 5'10.00" Weight: 201lbs. 0.0oz. [id number]; 31.00 BMI Method:Stated General Appearance: No Apparent Distress, WD/WN, Other (The pain in the right hip is significantly worsened by internal rotation of the hip. However this is not anterior hip pain this is in the posterior right hip/buttock area.) Neck: Full Range of Motion, Normal Inspection Respiratory: No Accessory Muscle Use, No Respiratory Distress Gastrointestinal: Normal Bowel Sounds, Non Tender, Soft Extremity: Normal Capillary Refill, Normal Inspection Neurologic/Psychiatric: Alert, Oriented x3 Skin: Normal Color, Warm/Dry Progress/Results/Core Measures Results/Orders Lab Results Laboratory Tests Test 05/25/21 15:30 Range/Units White Blood Count 7.0 4.3-11.0 10^3/uL Red Blood Count 4.69 4.30-5.52 10^6/uL Hemoglobin 15.0 13.3-17.7 g/dL Hematocrit 44 40-54 % Mean Corpuscular Volume 93 80-99 fL Mean Corpuscular Hemoglobin 32 25-34 pg Mean Corpuscular Hemoglobin Concent 34 32-36 g/dL Red Cell Distribution Width 13.6 10.0-14.5 % Platelet Count 212 130-400 10^3/uL Mean Platelet Volume 11.9 9.0-12.2 fL Immature Granulocyte % (Auto) 1 % Neutrophils (%) (Auto) 83 H 42-75 % Lymphocytes (%) (Auto) 13 12-44 % Monocytes (%) (Auto) 3 0-12 % Eosinophils (%) (Auto) 0 0-10 % Basophils (%) (Auto) 0 0-10 % Neutrophils # (Auto) 5.8 1.8-7.8 10^3/uL Lymphocytes # (Auto) 0.9 L 1.0-4.0 10^3/uL Monocytes # (Auto) 0.2 0.0-1.0 10^3/uL Eosinophils # (Auto) 0.0 0.0-0.3 10^3/uL Basophils # (Auto) 0.0 0.0-0.1 10^3/uL Immature Granulocyte # (Auto) 0.1 0.0-0.1 10^3/uL Erythrocyte Sedimentation Rate 5 0-30 MM/HR Sodium Level 139 135-145 MMOL/L Potassium Level 4.4 3.6-5.0 MMOL/L Chloride Level 108 H 98-107 MMOL/L Carbon Dioxide Level 22 21-32 MMOL/L Anion Gap 9 5-14 MMOL/L Blood Urea Nitrogen 18 7-18 MG/DL Creatinine 0.91 0.60-1.30 MG/DL Estimat Glomerular Filtration Rate 80 BUN/Creatinine Ratio 20 Glucose Level 154 H 70-105 MG/DL Calcium Level 9.9 8.5-10.1 MG/DL Corrected Calcium 9.7 8.5-10.1 MG/DL Total Bilirubin 0.7 0.1-1.0 MG/DL Aspartate Amino Transf (AST/SGOT) 19 5-34 U/L Alanine Aminotransferase (ALT/SGPT) 33 0-55 U/L Alkaline Phosphatase 58 40-136 U/L C-Reactive Protein High Sensitivity 0.12 0.00-0.50 MG/DL Total Protein 6.9 6.4-8.2 GM/DL Albumin 4.2 3.2-4.5 GM/DL My Orders Orders - MANFRED YE APRN Cbc With Automated Diff (05/25/21 15:06) Comprehensive Metabolic Panel (05/25/21 15:06) Erythrocyte Sedimentation Rate (05/25/21 15:06) Hs C Reactive Protein (05/25/21 15:06) Hydrocodone/Apap 5/325 Tablet (Lortab 5 (05/25/21 15:15) Fentanyl Inj (Sublimaze Injection) (05/25/21 15:15) Ct Lumbar Spine Wo (05/25/21 15:25) Ct Pelvis W (05/25/21 15:25) Iohexol Injection (Omnipaque 350 Mg/Ml 1 (05/25/21 16:30) Received Contrast (Hold Metformin- Contr (05/25/21 16:30) Ns (Ivpb) (Sodium Chloride 0.9% Ivpb Bag (05/25/21 16:30) Medications Given in ED Current Medications Medications Dose Ordered Sig/Daniel Route Start Time Stop Time Status Last Admin Dose Admin Acetaminophen/ Hydrocodone Bitart 1 ea ONCE ONCE PO 05/25/21 15:15 05/25/21 15:16 DC 05/25/21 15:28 1 EA Fentanyl Citrate 25 mcg ONCE PRN IVP 05/25/21 15:15 05/25/21 15:29 25 MCG Vital Signs/I&O 05/25/21 14:57 Pulse 69 Resp 22 B/P (MAP) 164/84 (110) Pulse Ox 95 O2 Delivery Room Air Blood Pressure Mean: 110 Departure Communication (Admissions) 1714-pain is better but not gone after 25 mcg of fentanyl IV and 1 hydrocodone 5/325. Studies so far do not show any obvious source of his pain, suspect a lumbar radiculopathy. I will refer him to MATT and Rafa at [facility] for states. Impression Primary Impression: Lumbar radiculopathy, acute Disposition: HOME, SELF-CARE Condition: Improved Departure-Patient Inst. Decision time for Depature: 17:16 Referrals: [facility] [place] Primary Care Physician ANGELITA JACKMAN APRN (Family) Primary Care Physician ANDIE WILLIAMSON BRIAN J MD Patient Instructions: Radiculopathy (DC) Scripts Oxycodone HCl/Acetaminophen (Oxycodone-Acetaminophen 5-325) 1 Each Tablet 1 EACH PO Q4H PRN for PAIN-MODERATE MDD 6 for 3 Days, #20 TAB 0 Refills Prov: MANFRED YE APRN 05/25/21 MANFRED YE APRN May 25, 2021 15:28
[2021-05-25 15:47] LABS: BASOPHILS % (AUTO) 0 % (0-10); EOSINOPHILS % (AUTO) 0 % (0-10); HEMATOCRIT 44 % (40-54); LYMPHOCYTES # (AUTO) 0.9 10^3/uL (1.0-4.0); LYMPHOCYTES % (AUTO) 13 % (12-44); MEAN CORPUSCULAR HEMOGLOBIN 32 pg (25-34); MEAN CORPUSCULAR HGB CONC 34 g/dL (32-36); MEAN CORPUSCULAR VOLUME 93 fL (80-99); MEAN PLATELET VOLUME 11.9 fL (9.0-12.2); MONOCYTES # (AUTO) 0.2 10^3/uL (0.0-1.0); MONOCYTES % (AUTO) 3 % (0-12); NEUTROPHILS # (AUTO) 5.8 10^3/uL (1.8-7.8); NEUTROPHILS % (AUTO) 83 % (42-75); PLATELET COUNT 212 10^3/uL (130-400)
[2021-05-25 15:54] LABS: ALBUMIN 4.2 GM/DL (3.2-4.5); POTASSIUM 4.4 MMOL/L (3.6-5.0)
[2021-05-25 15:56] LABS: CALCIUM 9.9 MG/DL (8.5-10.1)
[2021-05-25 15:57] LABS: TOTAL PROTEIN 6.9 GM/DL (6.4-8.2)
[2021-05-25 15:59] LABS: BILIRUBIN,TOTAL 0.7 MG/DL (0.1-1.0)
[2021-05-25 16:01] LABS: CREATININE SERUM 0.91 MG/DL (0.60-1.30)
[2021-05-25] MEDS ORDERED: NS 100 ML (IVPB) BAG IV ONE (16:30)
[2021-05-25] MEDS ORDERED: HOLD METFORMIN - RECEIVED CONTRAST 20 ML VIAL IV SCH (16:30)
[2021-05-25] MEDS ORDERED: IOHEXOL 350 MG/ML 100 ML (OMNIPAQUE 350) VIAL IV ONE (16:30)
[2021-05-25 16:48] LABS: ERYTHROCYTE SEDIMENTATION RATE 5 MM/HR (0-30)
--- NOTE | 2021-05-25 17:00 | Diagnostic Imaging Report ---
PROCEDURE: CT lumbar spine without contrast. TECHNIQUE: Multiple contiguous axial images were obtained through the lumbar spine without the use of intravenous contrast. Sagittal and coronal reformations were then performed. Auto Exposure Controls were utilized during the CT exam to meet ALARA standards for radiation dose reduction. INDICATION: Low back pain and pelvic pain. COMPARISON: CT abdomen and pelvis from 03/12/2018. FINDINGS: The last well-formed disc space will be labeled L5-S1 for the purposes of this examination. There is motion artifact on multiple images. This results in suboptimal evaluation. Bones appear somewhat osteopenic as well. There is multilevel disc height loss throughout the lumbar spine, which is most pronounced at L4-L5 and L5-S1. Vertebral body heights are preserved. No acute fracture is seen. No bony fragments or hyperdense fluid collections are seen in the spinal canal. There is calcific atherosclerosis. Soft tissues about the lumbar spine demonstrate no acute abnormality. The soft tissue contents of the spinal canal are suboptimally evaluated by CT, but there does appear to be severe spinal canal stenosis at L3-L4 and likely L4-L5. There is marked right foraminal stenosis bilaterally in the lower lumbar spine, which appears most severe at L4-L5 on the right. IMPRESSION: 1. Degenerative changes in the lumbar spine causing spinal canal and foraminal stenosis. No acute fracture is seen. Dictated by: Dictated on workstation # [id number]
--- NOTE | 2021-05-25 17:01 | Diagnostic Imaging Report ---
Procedure: CT pelvis with contrast. Technique: Oral and intravenous contrast were administered with pelvic CT performed. Auto Exposure Controls were utilized during the CT exam to meet ALARA standards for radiation dose reduction. Date: May 25, 2021. Indication: 81-year-old male, low back and pelvic pain. Comparison: CT abdomen and pelvis March 12, 2018. Findings: There is diverticulosis without evidence of acute diverticulitis. The imaged portions of the intestinal tract are not distended. There is no identified free intraperitoneal air. There is no identified drainable fluid collection. There is no sizable volume free pelvic fluid. There are atherosclerotic calcifications. There is no identified abnormally enlarged lymph node in the pelvis meeting CT size criteria for adenopathy. There are probable postoperative changes of the prostate. The urinary bladder is otherwise grossly unremarkable in appearance. There is a very small fat-containing left inguinal hernia. The hips are not dislocated. There is no identified acute fracture. There are degenerative changes of the lumbar spine. Impression: 1. No identified acute abnormality at the level of the pelvis. 2. Degenerative changes of the lumbar spine. Please see separately dictated CT lumbar spine report for additional evaluation of the lumbar spine and more detailed description of the lumbar spine. Dictated by: Dictated on workstation # [id number]
[2021-05-25] MEDS ORDERED: OXYC1TAB11 PO (17:16)
[2021-05-25 17:38] VITALS: BP 148/69
== END 2021-05-25 17:38 | disposition home or self-care (01) ==
LOC: EDUNIT# 14:42 → ER 14:44
DX: M54.16 Radiculopathy, lumbar region (principal); Z79.82 Long term (current) use of aspirin
CPT/HCPCS: 36415; 72131; 72193; 80053; 85025; 85652; 86141; 96374

== ENCOUNTER 2021-05-28 10:36 | Emergency (ER) | payer MEDICARE ==
[~2021-05-28 10:36] MED LIST changes: +OXYC1TAB11 PO
[2021-05-28] MEDS ORDERED: morphine INJ 10 MG/ML 1ML (SYR OR VIAL) IVP STA (11:22)
[2021-05-28] MEDS ORDERED: methylPREDNISolone 125 MG (Solu-MEDROL) VIAL IVP ONE (11:30)
[2021-05-28] MEDS ORDERED: METH4TAB PO (12:11)
[2021-05-28] MEDS ORDERED: TIZA4CAP PO (12:11)
--- NOTE | 2021-05-28 12:11 | ED Lower Extremity ---
General Chief Complaint: Lower Extremity Stated Complaint: R HIP PAIN SEEN 05/25 Source: patient (PT AND BOTH LIMITED HISTORIANS ), old records History of Present Illness Date Seen by Provider: May 28, 2021 Time Seen by Provider: 11:05 Initial Comments PT ARRIVES VIA POV FROM HOME STATES HE WENT TO [facility] TODAY AND THEY TOLD HIM TO COME HERE. C/O RIGHT HIP PAIN FOR OVER 2 WEEKS DENIES ANY INJURY TO THE AREA DENIES ANY PARESTHESIAS OR MOTOR DEFICITS PAIN RADIATES DOWN LATERAL ASPECT OF RIGHT LEG TO THE KNEE NO SWELLING TO LEG NO RASH IN THE AREA NO HISTORY OF SIMILAR PT WAS SEEN HERE 05/25/[address] PT [address] SCANS OF HIP/PELVIS AND LUMBAR SPINE--WAS FOUND TO HAVE SPINAL STENOSIS AND WAS REFERRED TO /DR. WILLIAMSON WITH [facility]. HE HAS NOT ATTEMPTED TO CONTACT THEM YET TO SCHEDULE AN APPOINTMENT. WAS GIVEN RX FOR OXYCODONE--PT STATES "IT'S NOT TOUCHING IT"--LAST DOSE WAS AT 0800 HAD PREVIOUSLY BEEN PRESCRIBED MELOXICAM AND CYCLOBENZAPRINE BY [facility] FOR THIS PROBLEM WELL--STATES THEY ARE NOT HELPING PCP; [facility] Allergies and Home Medications Allergies Coded Allergies: No Known Drug Allergies (Verified , 08/01/09) Patient Home Medication List Home Medication List Reviewed: Yes Amlodipine Besylate (Norvasc Tablet) 10 Mg Tablet, 10 MG PO DAILY, (Reported) Entered as Reported by: JANETTE MILLER on 01/07/13 0328 Aspirin (Aspirin 325 Mg Tab) 325 Mg Tab, 325 MG PO HS, (Reported) Entered as Reported by: RICHA GRAFF on 05/25/12 1104 Cyanocobalamin (Vitamin B-12) (Vitamin B12) 2,500 Mcg Tablet, 2,500 MCG PO DAILY, (Reported) Entered as Reported by: NIRAJ CEJA on 06/15/15 1115 Enalapril Maleate (Enalapril Maleate) 10 Mg Tablet, 10 MG PO BID, (Reported) Entered as Reported by: RICHA DUGGAN on 05/27/10 1150 Methylprednisolone (Medrol) 4 Mg Tab.ds.pk, 4 MG PO UD Prescribed by: VIKAS CALDERÓN on 05/28/21 1211 Metoprolol Tartrate (Metoprolol Tartrate) 25 Mg Tablet, 25 MG PO BID Prescribed by: ELIAS SALEH on 04/25/17 1041 Multivitamins (Multiple Vitamin) 1 Tab Tablet, 1 TAB PO DAILY, (Reported) Entered as Reported by: OTF STOCK on 08/07/11 1211 Nitroglycerin (Nitroglycerin) 0.4 Mg Tab.subl, 0.4 MG SL UD PRN for CHEST PAIN Prescribed by: YAIMA BRICEÑO on 04/25/17 1102 [place] 3 Polyunsat Fatty Acids (Fish Oil 1,000 mg Capsule) 1,000 Mg Cap, 3,000 MG PO DAILY, (Reported) Entered as Reported by: MORGAN GONSALES on 04/24/17 1535 [place] 3 Polyunsat Fatty Acids (Fish Oil 1,000 mg Capsule) 1,000 Mg Cap, 2,000 MG PO HS, (Reported) Entered as Reported by: MORGAN GONSALES on 04/24/17 1535 Oxycodone HCl/Acetaminophen (Oxycodone-Acetaminophen 5-325) 1 Each Tablet, 1 EACH PO Q4H PRN for PAIN-MODERATE Prescribed by: MANFRED YE on 05/25/21 1717 Pravastatin Sodium (Pravastatin Sodium) 80 Mg Tablet, 80 MG PO HS, (Reported) Entered as Reported by: MORGAN GONSALES on 04/24/17 1527 Ranolazine (Ranexa) 1,000 Mg Tab.er.12h, 1,000 MG PO BID, (Reported) Entered as Reported by: MORGAN GONSALES on 04/24/17 1535 Tizanidine HCl (Zanaflex) 4 Mg Capsule, 4 MG PO Q8H PRN for MUSCLE SPASMS Prescribed by: VIKAS CALDERÓN on 05/28/21 1211 Vitamin E Acetate (Vitamin E) 400 Unit Capsule, 400 UNIT PO DAILY, (Reported) Entered as Reported by: TEGAN WARD on 08/01/09 0916 Review of Systems Constitutional: no symptoms reported Respiratory: no symptoms reported Cardiovascular: no symptoms reported Musculoskeletal: see HPI Skin: no symptoms reported; No rash Psychiatric/Neurological: No Symptoms Reported Past Vrylosc-Rkrzoz-Yjminr Hx Immunizations Up To Date Tetanus Booster (TDap): Unknown PED Vaccines UTD: Yes First/Initial COVID19 Vaccinat: 2020 Second COVID19 Vaccination Myron: 2020 Seasonal Allergies Seasonal Allergies: No Past Medical History Surgeries: Yes (inguinal hernia repair, prostate sx, stents) Abdominal, Coronary Stent, Transurethral Resection Respiratory: No Cardiac: Yes (1 heart stent) Coronary Artery Disease Neurological: No Reproductive Disorders: No Sexually Transmitted Disease: No Genitourinary: Yes Benign Prostatic Hyperpl, Prostate Problems, Kidney Stones Gastrointestinal: No Musculoskeletal: Yes Arthritis Endocrine: No HEENT: No Loss of Vision: Denies Hearing Impairment: Hard of Hearing Cancer: No Psychosocial: No Integumentary: No Blood Disorders: No Family Medical History Congenital disease 19 FATHER Diabetes mellitus 19 MOTHER Neoplasm 19 MOTHER (maybe colon cancer) G8 BROTHER (lung cancer) No Pertinent Family Hx Physical Exam Vital Signs Vital Signs - First Documented 05/28/21 10:54 Temp 36.8 Pulse 64 Resp 16 B/P (MAP) 160/90 (113) Pulse Ox 97 O2 Delivery Room Air Capillary Refill : Height, Weight, BMI Height: 5'10.00" Weight: 201lbs. 0.0oz. 91.472183ad; 31.00 BMI Method:Stated General Appearance: WD/WN, no apparent distress, other (SMILING AND FREELY MOVING RIGHT LEG. DOES NOT APPEAR TO BE IN ANY DISCOMFORT OR DISTRESS AT THIS TIME.) Cardiovascular: normal peripheral pulses, regular rate, rhythm, no murmur Respiratory: normal breath sounds Gastrointestinal: non tender, soft Back: other (VERY MILD TENDERNESS OVER RIGHT SI JOINT. NO VERTEBRAL TENDERNESS. NO BUTTOCKS TENDERNESS. ) Hips: right hip other (VERY TENDER DIRECTLY OVER RIGHT GREATER TROCHANTER--PALPATION REPRODUCES PAIN. NO SWELLING OR EVIDENCE OF TRAUMA TO AREA. NO TENDERNESS TO THIGH OR THE REST OF RIGHT LEG. DISTAL MOTOR/SENSORY/VASCULAR INTACT. PULSES +2/4 BILATERALLY AND FEET ARE PINK AND WARM. DTR'S +2/4 BILATERALLY. NO RASH NOTED TO AREA) Neurologic/Tendon: normal sensation, normal motor functions, normal tendon functions Neurologic/Psychiatric: digital strategy specialist II-XII nml as tested, no motor/sensory deficits, alert, normal mood/affect, oriented x 3 Skin: normal color, warm/dry; No rash Progress/Results/Core Measures Results/Orders My Orders Orders - VIKAS CALDERÓN DO Ed Iv/Invasive Line Start (05/28/21 11:22) Methylprednisolone Sod Succ (Solu-Medrol (05/28/21 11:30) Morphine Injection (Morphine Injection (05/28/21 11:22) Medications Given in ED Vital Signs/I&O 05/28/21 05/28/21 10:54 12:40 Temp 36.8 Pulse 64 67 Resp 16 16 B/P (MAP) 160/90 (113) 149/73 Pulse Ox 97 96 O2 Delivery Room Air Room Air Progress Progress Note : Progress Note GIVEN IV SOLU-MEDROL AND MORPHINE WITH SIGNIFICANT IMPROVEMENT IN PAIN ONLY HAS VERY MILD RESIDUAL TENDERNESS TO RIGHT GREATER TROCHANTER, NO TENDERNESS OVER RIGHT SI JOINT OR LUMBAR AREA OR BUTTOCKS AREA RETURN PRECAUTIONS DISCUSSED ALSO DISCUSSED PRECAUTIONS FOR SEDATION AND FALL RISK WITH PRESCRIBED MEDICATIONS PT HAS A WALKER AT HOME--STATES HE NEVER USES IT--I ADVISED HIM TO USE IT AT ALL TIMES. Departure Impression Primary Impression: Right hip pain Additional Impression: Degenerative lumbar spinal stenosis Disposition: HOME, SELF-CARE Condition: Improved Departure-Patient Inst. Decision time for Depature: 12:05 [facility] Primary Care Physician ANGELITA JACKMAN APRN (Family) Primary Care Physician Patient Instructions: Hip Pain (DC), Spinal Stenosis (DC) Add. Discharge Instructions: ALTERNATE ICE AND HEAT TO SORE AREAS AT 20 MINUTE INTERVALS CONTINUE OXYCODONE PRESCRIBED FOR PAIN STOP TAKING MELOXICAM AND CYCLOBENZAPRINE FOLLOW UP WITH DR. GUTIERREZ / DR. WILLIAMSON AT [address] THIS WEEK--CALL TODAY TO SCHEDULE AN APPOINTMENT All discharge instructions reviewed with patient and/or family. Voiced understanding. Scripts Tizanidine HCl (Zanaflex) 4 Mg Capsule 4 MG PO Q8H PRN for MUSCLE SPASMS, #15 CAP Prov: VIKAS CALDERÓN DO 05/28/21 Methylprednisolone (Medrol) 4 Mg Tab.ds.pk 4 MG PO UD for 6 Days, #21 PKG PER DOSE PACK INSTRUCTIONS Prov: VIKAS CALDERÓN DO 05/28/21 VIKAS CALDERÓN DO May 28, 2021 12:11
[2021-05-28 12:40] VITALS: BP 149/73
== END 2021-05-28 12:25 | disposition home or self-care (01) ==
LOC: EDUNIT# 10:36 → ER 10:37
DX: M25.551 Pain in right hip (principal); M48.061 Spinal stenosis, lumbar region without neurogenic claudication

== ENCOUNTER 2021-07-01 09:25 | Emergency (ER) | payer MEDICARE ==
[~2021-07-01] VITALS: Ht 177 cm; Wt 93.0 kg
[~2021-07-01 09:25] MED LIST changes: +METH4TAB PO; +TIZA4CAP PO
--- NOTE | 2021-07-01 10:06 | ED Back Pain ---
General Chief Complaint: Back Problems Stated Complaint: BACK PAIN Nursing Triage Note: PT AMB W WALKER TO ROOM 5 PT CO OF SEVERE BACK PAIN THAT RADIATES TO R HIP AND LEG, DAUGHTER STATES PT RECIEVED INJECTION IN BACK ON FRIDAY, PT WAS SUPPOSED TO HAVE SURG ON BACK ON JUL 23 BUT WAS CANCELLED BY TRYING TO GET ESTABLISHED W ANOTHER SURGEON. HAS HX RUPTURED DISK Source of Information: Patient, Family Exam Limitations: No Limitations History of Present Illness Date Seen by Provider: Jul 01, 2021 Time Seen by Provider: 09:50 Initial Comments Patient is an 81-year-old male who presents to the emergency department today with a chief complaint of low back pain with right sided radiculopathy. Patient has been followed at [facility] by Dr. Craig. He was scheduled to have surgery on his low back on July 23 however they canceled his surgery as it turns out Dr. Craig has left [address] The patient currently does not have a scheduled follow-up. He did have spinal injections on Friday of last week by Dr. Brown however he states that that has not helped his pain whatsoever. He has been taking 7.5 hydrocodone at home 300 mg of gabapentin 3 times a day without any relief of symptoms. Patient cannot find a comfortable position in the bed. He is also using lidocaine patches in his low back. He is not been on any muscle relaxers he is currently not on steroids. He denies any incontinence of bowel or bladder. He states he has significant pain with movement and sitting still. No recent fevers, chills, productive cough. He is quite tearful and upset regar ding the amount of discomfort he is in. All other review of systems reviewed and negative except as stated. Location: Lumbar Spine Timing/Duration: 1 Week Severity: Severe Pain/Injury Location: Back (low back) Radiation: Upper Legs Associated Symptoms: muscle spasms, tingling in legs/feet (right upper leg), sensory/motor loss Allergies and Home Medications Allergies Coded Allergies: No Known Drug Allergies (Verified , 08/01/09) Patient Home Medication List Home Medication List Reviewed: Yes Amlodipine Besylate (Norvasc Tablet) 10 Mg Tablet, 10 MG PO DAILY, (Reported) Entered as Reported by: JANETTE MILLER on 01/07/13 0328 Aspirin (Aspirin 325 Mg Tab) 325 Mg Tab, 325 MG PO HS, (Reported) Entered as Reported by: RICHA GRAFF on 05/25/12 1104 Cyanocobalamin (Vitamin B-12) (Vitamin B12) 2,500 Mcg Tablet, 2,500 MCG PO DAILY, (Reported) Entered as Reported by: NIRAJ CEJA on 06/15/15 1115 Enalapril Maleate (Enalapril Maleate) 10 Mg Tablet, 10 MG PO BID, (Reported) Entered as Reported by: RICHA DUGGAN on 05/27/10 1150 Methylprednisolone (Medrol) 4 Mg Tab.ds.pk, 4 MG PO UD Prescribed by: VIKAS CALDERÓN on 05/28/21 1211 Metoprolol Tartrate (Metoprolol Tartrate) 25 Mg Tablet, 25 MG PO BID Prescribed by: ELIAS SALEH on 04/25/17 1041 Multivitamins (Multiple Vitamin) 1 Tab Tablet, 1 TAB PO DAILY, (Reported) Entered as Reported by: OTF STOCK on 08/07/11 1211 Nitroglycerin (Nitroglycerin) 0.4 Mg Tab.subl, 0.4 MG SL UD PRN for CHEST PAIN Prescribed by: YAIMA BRICEÑO on 04/25/17 1102 [place] 3 Polyunsat Fatty Acids (Fish Oil 1,000 mg Capsule) 1,000 Mg Cap, 3,000 MG PO DAILY, (Reported) Entered as Reported by: MORGAN GONSALES on 04/24/17 1535 [place] 3 Polyunsat Fatty Acids (Fish Oil 1,000 mg Capsule) 1,000 Mg Cap, 2,000 MG PO HS, (Reported) Entered as Reported by: MORGAN GONSALES on 04/24/17 1535 Oxycodone HCl/Acetaminophen (Oxycodone-Acetaminophen 5-325) 1 Each Tablet, 1 EACH PO Q4H PRN for PAIN-MODERATE Prescribed by: MANFRED YE on 05/25/21 1717 Oxycodone HCl/Acetaminophen (Percocet 7.5-325 mg Tablet) 1 Each Tablet, 1 TAB PO Q6H PRN for PAIN-MODERATE Prescribed by: TOAN ALLEN on 07/01/21 1052 Pravastatin Sodium (Pravastatin Sodium) 80 Mg Tablet, 80 MG PO HS, (Reported) Entered as Reported by: MORGAN GONSALES on 04/24/17 1527 Prednisone (Prednisone) 20 Mg Tab, 20 MG PO DAILY Prescribed by: TOAN ALLEN on 07/01/21 1052 Ranolazine (Ranexa) 1,000 Mg Tab.er.12h, 1,000 MG PO BID, (Reported) Entered as Reported by: MORGAN GONSALES on 04/24/17 1535 Tizanidine HCl (Zanaflex) 4 Mg Capsule, 4 MG PO Q8H PRN for MUSCLE SPASMS Prescribed by: VIKAS CALDERÓN on 05/28/21 1211 Tizanidine HCl (Tizanidine HCl) 4 Mg Tablet, 4 MG PO Q8H PRN for muscle spasm Prescribed by: TOAN ALLEN on 07/01/21 1052 Vitamin E Acetate (Vitamin E) 400 Unit Capsule, 400 UNIT PO DAILY, (Reported) Entered as Reported by: TEGAN WARD on 08/01/09 0916 Review of Systems Constitutional: see HPI EENTM: no symptoms reported Respiratory: no symptoms reported Cardiovascular: no symptoms reported Gastrointestinal: no symptoms reported Genitourinary: no symptoms reported Musculoskeletal: back pain, muscle cramps Skin: no symptoms reported Psychiatric/Neurological: Anxiety, Depressed (cannot sleep/rest due to pain) All Other Systems Reviewed Negative Unless Noted: Yes Past Hitekmn-Fpohep-Kmafmb Hx Patient Social History Tobacco Use?: No Substance use?: No Alcohol Use?: No Pt feels they are or have been: No Immunizations Up To Date Tetanus Booster (TDap): Unknown PED Vaccines UTD: Yes First/Initial COVID19 Vaccinat: Sep 2020 Second COVID19 Vaccination Myron: October 2020 Third COVID19 Vaccination Date: Sep 2020 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 Seasonal Allergies Seasonal Allergies: No Past Medical History Surgeries: Yes (inguinal hernia repair, prostate sx, stents) Abdominal, Coronary Stent, Transurethral Resection Respiratory: No Cardiac: Yes (1 heart stent) Coronary Artery Disease Neurological: No Reproductive Disorders: No Sexually Transmitted Disease: No Genitourinary: Yes Benign Prostatic Hyperpl, Prostate Problems, Kidney Stones Gastrointestinal: No Musculoskeletal: Yes Arthritis Endocrine: No HEENT: No Loss of Vision: Denies Hearing Impairment: Hard of Hearing Cancer: No Psychosocial: No Integumentary: No Blood Disorders: No Family Medical History Congenital disease 19 FATHER Diabetes mellitus 19 MOTHER Neoplasm 19 MOTHER (maybe colon cancer) G8 BROTHER (lung cancer) No Pertinent Family Hx Physical Exam Vital Signs Vital Signs - First Documented 07/01/21 09:32 Temp 36.6 Pulse 71 Resp 18 B/P (MAP) 155/83 (107) Pulse Ox 97 Capillary Refill : Less Than 3 Seconds Height, Weight, BMI Height: 5'10.00" Weight: 201lbs. 0.0oz. [id number]; 29.00 BMI Method:Stated General Appearance: WD/WN, Anxious Neck: Normal Inspection Cardiovascular: Regular Rate, Rhythm, Systolic Murmur Respiratory: Lungs Clear, Normal Breath Sounds, No Accessory Muscle Use, No Respiratory Distress Gastrointestinal: Normal Bowel Sounds, Non Tender, Soft Back: Normal Inspection, Vertebral Tenderness (low back - more right sided) Extremity: Normal Capillary Refill, Normal Inspection, Normal Range of Motion Neurologic/Psychiatric: Alert, Oriented x3, No Motor/Sensory Deficits, Other (tearful and upset) Skin: Normal Color, Warm/Dry Progress/Results/Core Measures Results/Orders My Orders Orders - TOAN ALLEN MD Oxycodone/Apap 7.5/325mg Tab (Percocet (07/01/21 10:15) Orphenadrine Inj (Ed Only) (Norflex Inje (07/01/21 10:15) Medications Given in ED Vital Signs/I&O 07/01/21 07/01/21 09:32 11:01 Temp 36.6 Pulse 71 64 Resp 18 18 B/P (MAP) 155/83 (107) 135/82 Pulse Ox 97 97 Blood Pressure Mean: 107 Progress Progress Note : Time: 10:47 Progress Note Patient feels "a little bit" better after the oxycodone and Norflex injection. I reviewed plan of care with the daughter and she seems very comfortable with it. We will put him on a short prednisone taper, put him on tizanidine, change him from hydrocodone to oxycodone, double his gabapentin. Will give the daughter some names of local neurosurgeons. Return precautions given. Family is comfortable with this plan of care. All questions are sought and answered. Departure Impression Primary Impression: Lumbar radiculopathy Additional Impression: Chronic back pain Qualified Codes: M54.41 - Lumbago with sciatica, right side; G89.29 - Other chronic pain Disposition: 01 HOME, SELF-CARE Condition: Stable Departure-Patient Inst. Decision time for Depature: 10:39 Referrals: [facility] (PCP) Primary Care Physician ANGELITA JACKMAN APRN (Family) Primary Care Physician Patient Instructions: Radiculopathy Add. Discharge Instructions: Continue to alternate heat packs and ice pack to the sore areas of your low back. Lidocaine patches as needed. I have prescribed oxycodone to take instead of hydrocodone. Always take stool softeners daily to help with issues of constipation while you are taking narcotic pain medicines. You can double your gabapentin dosing to 600 mg 3 times a day. I have written you for some tizanidine, 4 mg tablets, to take 1 every 8 hours as needed for muscle spasm. Please be very careful with this combination of medications as the combination of the narcotic, gabapentin and muscle relaxer can make you very sleepy. While you are on steroids, the prednisone, you should take an hbbn-zyn-opvlvdi acid lawn care worker such as Prilosec or Pepcid. Return to the emergency room for any sudden leg weakness, loss of bowel or bladder function or any other emergent concerning symptoms. Scripts Tizanidine HCl (Tizanidine HCl) 4 Mg Tablet 4 MG PO Q8H PRN for muscle spasm, #20 TAB Prov: TOAN ALLEN MD 07/01/21 Oxycodone HCl/Acetaminophen (Percocet 7.5-325 mg Tablet) 1 Each Tablet 1 TAB PO Q6H PRN for PAIN-MODERATE MDD 4 TABS, #20 TAB Prov: TOAN ALLEN MD 07/01/21 Prednisone (Prednisone) 20 Mg Tab 20 MG PO DAILY, #20 TAB take 3 tablets for 3 days take 2 tablets for 3 days take 1 tablet for 3 days take 1/2 tablet for 3 days Prov: TOAN ALLEN MD 07/01/21 TOAN ALLEN MD Jul 01, 2021 10:06
[2021-07-01] MEDS ORDERED: oxyCODONE/APAP 7.5-325 MG (PERCOCET 7.5) TABLET PO ONE (10:15)
[2021-07-01] MEDS ORDERED: ORPHENADRINE 60 MG/2 ML (NORFLEX) AMP (ED ONLY) IM ONE (10:15)
[2021-07-01] MEDS ORDERED: OXYC1TAB16 PO (10:52)
[2021-07-01] MEDS ORDERED: TIZA4TAB4 PO (10:52)
[2021-07-01] MEDS ORDERED: PRD20T PO (10:52)
[2021-07-01 11:01] VITALS: BP 135/82
== END 2021-07-01 11:01 | disposition home or self-care (01) ==
LOC: EDUNIT# 09:25 → ER 09:26
DX: G89.29 Other chronic pain (principal); M54.16 Radiculopathy, lumbar region; I25.10 Atherosclerotic heart disease of native coronary artery without angina pectoris; Z79.82 Long term (current) use of aspirin; Z79.899 Other long term (current) drug therapy
CPT/HCPCS: 99284

== ENCOUNTER 2021-07-09 05:30 | Emergency (ER) | payer MEDICARE ==
[~2021-07-09] VITALS: Ht 177.8 cm; Wt 95.7 kg
[~2021-07-09 05:30] MED LIST changes: +OXYC1TAB16 PO; +PRD20T PO; +TIZA4TAB4 PO
[2021-07-09 05:37] VITALS: BP 167/86
--- NOTE | 2021-07-09 05:57 | ED General ---
General Chief Complaint: General Problems/Pain Stated Complaint: R HIP/LEG PAIN Source of Information: Patient Exam Limitations: No Limitations (TOAN ALLEN MD) History of Present Illness Date Seen by Provider: Jul 09, 2021 Time Seen by Provider: 05:41 Initial Comments Patient is an 81-year-old male who presents to the emergency department today with a chief complaint of an exacerbation of chronic back pain, right hip and leg pain. Patient states that he is got a ruptured disc and has been on a pain management regimen through [facility], his practitioner at the clinic recently decreased his Percocet dosing from 7.5 mg to 5 mg. This was done it looks like according to his records on 05 July. Patient states he has had worsening pain. Last round of pain medications was at 4am. He denies weakness but states he has significant pain that radiates down into the right thigh. No numbness or weakness. No loss of bowel or bladder function. Normal ability to urinate. He is on Senokot, he states that he is actually having fairly loose stools, no complaints of constipation. No recent illnesses such as fevers, chills, cough or congestion. No chest pain. He does have prior cardiac stent placement, fol lows with Dr. Shrestha. Patient tells me that Dr. Hernandez at [place] [address] states is going to do an operation on July 23 for him to fix his back. He keeps a very good records on his pain medications. He is on gabapentin, recently finished a round of steroids, is on muscle relaxers. He complains of dry mouth related to this. All other review of systems reviewed and negative except as stated. Timing/Duration: 4-6 Hours Severity: Severe Associated Systoms: Denies Symptoms (TOAN ALLEN MD) Allergies and Home Medications Allergies Coded Allergies: No Known Drug Allergies (Verified , 08/01/09) Patient Home Medication List Home Medication List Reviewed: Yes (TOAN ALLEN MD) Home Medication List Reviewed: Yes (FERDINAND WEN) Amlodipine Besylate (Norvasc Tablet) 10 Mg Tablet, 10 MG PO DAILY, (Reported) Entered as Reported by: JANETTE MILLER on 01/07/13 0328 Aspirin (Aspirin 325 Mg Tab) 325 Mg Tab, 325 MG PO HS, (Reported) Entered as Reported by: RICHA GRAFF on 05/25/12 1104 Cyanocobalamin (Vitamin B-12) (Vitamin B12) 2,500 Mcg Tablet, 2,500 MCG PO DAILY, (Reported) Entered as Reported by: NIRAJ CEJA on 06/15/15 1115 Enalapril Maleate (Enalapril Maleate) 10 Mg Tablet, 10 MG PO BID, (Reported) Entered as Reported by: RICHA DUGGAN on 05/27/10 1150 Methylprednisolone (Medrol) 4 Mg Tab.ds.pk, 4 MG PO UD Prescribed by: VIKAS CALDERÓN on 05/28/21 1211 Metoprolol Tartrate (Metoprolol Tartrate) 25 Mg Tablet, 25 MG PO BID Prescribed by: ELIAS SALEH on 04/25/17 1041 Multivitamins (Multiple Vitamin) 1 Tab Tablet, 1 TAB PO DAILY, (Reported) Entered as Reported by: OTF STOCK on 08/07/11 1211 Nitroglycerin (Nitroglycerin) 0.4 Mg Tab.subl, 0.4 MG SL UD PRN for CHEST PAIN Prescribed by: YAIMA SHRESTHA on 04/25/17 1102 [place] 3 Polyunsat Fatty Acids (Fish Oil 1,000 mg Capsule) 1,000 Mg Cap, 3,000 MG PO DAILY, (Reported) Entered as Reported by: MORGAN GONSALES on 04/24/17 1535 [place] 3 Polyunsat Fatty Acids (Fish Oil 1,000 mg Capsule) 1,000 Mg Cap, 2,000 MG PO HS, (Reported) Entered as Reported by: MORGAN GONSALES on 04/24/17 1535 Oxycodone HCl/Acetaminophen (Oxycodone-Acetaminophen 5-325) 1 Each Tablet, 1 EACH PO Q4H PRN for PAIN-MODERATE Prescribed by: MANFRED YE on 05/25/21 1717 Oxycodone HCl/Acetaminophen (Percocet 7.5-325 mg Tablet) 1 Each Tablet, 1 TAB PO Q6H PRN for PAIN-MODERATE Prescribed by: TOAN ALLEN on 07/01/21 1052 Oxycodone HCl/Acetaminophen (Percocet 7.5-325 mg Tablet) 1 Each Tablet, 1 TAB PO Q4H PRN for PAIN-MODERATE Prescribed by: FERDINAND WEN on 07/09/21 0731 Pravastatin Sodium (Pravastatin Sodium) 80 Mg Tablet, 80 MG PO HS, (Reported) Entered as Reported by: MORGAN GONSALES on 04/24/17 1527 Prednisone (Prednisone) 20 Mg Tab, 20 MG PO DAILY Prescribed by: TOAN ALLEN on 07/01/21 1052 Ranolazine (Ranexa) 1,000 Mg Tab.er.12h, 1,000 MG PO BID, (Reported) Entered as Reported by: MORGAN GONSALES on 04/24/17 1535 Tizanidine HCl (Zanaflex) 4 Mg Capsule, 4 MG PO Q8H PRN for MUSCLE SPASMS Prescribed by: VIKAS CALDERÓN on 05/28/21 1211 Tizanidine HCl (Tizanidine HCl) 4 Mg Tablet, 4 MG PO Q8H PRN for muscle spasm Prescribed by: TOAN ALLEN on 07/01/21 1052 Vitamin E Acetate (Vitamin E) 400 Unit Capsule, 400 UNIT PO DAILY, (Reported) Entered as Reported by: TEGAN WARD on 08/01/09 0916 Review of Systems Review of Systems Constitutional: see HPI EENTM: no symptoms reported Respiratory: no symptoms reported Cardiovascular: no symptoms reported Gastrointestinal: no symptoms reported Genitourinary: no symptoms reported Musculoskeletal: joint pain (right hip and back pain), muscle pain (right thigh) Skin: no symptoms reported Psychiatric/Neurological: No Symptoms Reported (TOAN ALLEN MD) All Other Systems Reviewed Negative Unless Noted: Yes (TOAN ALLEN MD) Past Vrljema-Fmajfa-Jrrdyv Hx Patient Social History Tobacco Use?: No Use of E-Cig and/or Vaping dev: No Substance use?: No Alcohol Use?: No (FERDINAND WEN) Immunizations Up To Date Tetanus Booster (TDap): Unknown PED Vaccines UTD: Yes First/Initial COVID19 Vaccinat: Sep 2020 Second COVID19 Vaccination Myron: October 2020 Third COVID19 Vaccination Date: Sep 2020 (TOAN ALLEN MD) Seasonal Allergies Seasonal Allergies: No (TOAN ALLEN MD) Past Medical History Surgeries: Yes (inguinal hernia repair, prostate sx, stents) Abdominal, Coronary Stent, Transurethral Resection Respiratory: No Cardiac: Yes (1 heart stent) Coronary Artery Disease Neurological: No Reproductive Disorders: No Sexually Transmitted Disease: No Genitourinary: Yes Benign Prostatic Hyperpl, Prostate Problems, Kidney Stones Gastrointestinal: No Musculoskeletal: Yes Arthritis Endocrine: No HEENT: No Loss of Vision: Denies Hearing Impairment: Hard of Hearing Cancer: No Psychosocial: No Integumentary: No Blood Disorders: No (TOAN ALLEN MD) Family Medical History Congenital disease 19 FATHER Diabetes mellitus 19 MOTHER Neoplasm 19 MOTHER (maybe colon cancer) G8 BROTHER (lung cancer) No Pertinent Family Hx (TOAN ALLEN MD) Physical Exam Vital Signs Vital Signs - First Documented 07/09/21 05:37 Temp 36.4 Pulse 75 Resp 22 B/P (MAP) 167/86 (113) Pulse Ox 98 O2 Delivery Room Air (FERDINAND WEN) Vital Signs Capillary Refill : (TOAN ALLEN MD) Height, Weight, BMI Height: 5'10.00" Weight: 201lbs. 0.0oz. [id number]; 29.00 BMI Method:Stated General Appearance: WD/WN, Anxious, Moderate Distress Eyes: Bilateral Eye Normal Inspection, Bilateral Eye PERRL, Bilateral Eye EOMI HEENT: PERRL/EOMI Neck: Normal Inspection Respiratory: Lungs Clear, Normal Breath Sounds, No Accessory Muscle Use, No Respiratory Distress Cardiovascular: Regular Rate, Rhythm Gastrointestinal: Non Tender, Soft Extremity: Normal Inspection, Normal Range of Motion, No Pedal Edema Neurologic/Psychiatric: Alert, Oriented x3, No Motor/Sensory Deficits, Other (very anxious and upset regarding his pain in the right hip and thigh; cant hardly sit still; normal dorsiflexion - good strength and sensation.) Skin: Normal Color, Warm/Dry (TOAN ALLEN MD) Progress/Results/Core Measures Suspected Sepsis SIRS Temperature: Pulse: Respiratory Rate: Blood Pressure / Mean: (TOAN ALLEN MD) Results/Orders Medications Given in ED Current Medications Medications Dose Ordered Sig/Daniel Route Start Time Stop Time Status Last Admin Dose Admin Oxycodone/ Acetaminophen 1 tab ONCE ONCE PO 07/09/21 06:00 07/09/21 06:01 DC 07/09/21 06:05 1 TAB (FERDINAND WEN) Vital Signs/I&O 07/09/21 05:37 Temp 36.4 Pulse 75 Resp 22 B/P (MAP) 167/86 (113) Pulse Ox 98 O2 Delivery Room Air (FERDINAND WEN) Vital Signs/I&O Capillary Refill : (TOAN ALLEN MD) Progress Note : Time: 05:56 Progress Note will give patient an extra 5mg Percocet; I think if this helps his pain, will give him another prescription for 7.5mg Percocet. He states he is planning to talk to his provider at [facility] about re-increasing his pain medications, just until he can get his surgery done. (TOAN ALLEN MD) Progress Note #1: Progress Note Assumed care of the patient at shift change. He plans to follow-up with his doctor today for pain management. Will observe him for a short amount of time. Progress Note #2: Time: 07:27 Progress Note Patient is able to get up and walk better and his pain is much improved. We will send him home with some Percocets for a week and he is to follow-up this week with his pain management doctor. (FERDINAND WEN) Departure Impression Primary Impression: Lumbago with sciatica, right side Qualified Codes: M54.41 - Lumbago with sciatica, right side; G89.29 - Other chronic pain Disposition: 01 HOME, SELF-CARE Condition: Stable Departure-Patient Inst. Decision time for Depature: 07:30 (FERDINAND WEN) [place]: [facility] [place] Primary Care Physician ANGELITA JACKMAN APRN (Family) Primary Care Physician Patient Instructions: Sciatica (DC) Add. Discharge Instructions: Percocet 1 tablet every 4 hours as necessary for severe breakthrough pain. Keep your follow-up appointment with your pain management doctor and surgeon. All discharge instructions reviewed with patient and/or family. Voiced understanding. Scripts Oxycodone HCl/Acetaminophen (Percocet 7.5-325 mg Tablet) 1 Each Tablet 1 TAB PO Q4H PRN for PAIN-MODERATE MDD 4 TABS for 7 Days, #40 TAB 0 Refills Prov: FERDINAND WEN 07/09/21 TOAN ALLEN MD Jul 09, 2021 05:57 FERDINAND WEN Jul 09, 2021 06:29
[2021-07-09] MEDS ORDERED: oxyCODONE/APAP 5/325MG (PERCOCET 5) TABLET PO ONE (06:00)
[2021-07-09] MEDS ORDERED: OXYC1TAB16 PO (07:31)
== END 2021-07-09 07:38 | disposition home or self-care (01) ==
LOC: EDUNIT# 05:30 → ER 05:31
DX: M54.41 Lumbago with sciatica, right side (principal); I25.10 Atherosclerotic heart disease of native coronary artery without angina pectoris; Z79.82 Long term (current) use of aspirin; Z79.899 Other long term (current) drug therapy

== ENCOUNTER → 2021-07-20 | Outpatient (CLI) | payer MEDICARE ==
[~2021-07-20] MED LIST changes: +TIZA-186 PO; -TIZA4TAB4 PO
== END ==
LOC: LABNPT 06:50
PROVIDERS: ATTEND Orthopaedic Surgery Orthopaedic Trauma
DX: Z53.9 Procedure and treatment not carried out, unspecified reason (principal)
CPT/HCPCS: 87635

== ENCOUNTER 2021-07-31 17:02 | Emergency (ER) | payer MEDICARE ==
[~2021-07-31] VITALS: Ht 177.8 cm; Wt 95.0 kg
[2021-07-31 17:41] LABS: BASOPHILS % (AUTO) 0 % (0-10); EOSINOPHILS # (AUTO) 0.3 10^3/uL (0.0-0.3); EOSINOPHILS % (AUTO) 3 % (0-10); HEMATOCRIT 33 % (40-54); HEMOGLOBIN 11.1 g/dL (13.3-17.7); LYMPHOCYTES # (AUTO) 1.3 10^3/uL (1.0-4.0); LYMPHOCYTES % (AUTO) 14 % (12-44); MEAN CORPUSCULAR HEMOGLOBIN 31 pg (25-34); MEAN CORPUSCULAR HGB CONC 33 g/dL (32-36); MEAN CORPUSCULAR VOLUME 94 fL (80-99); MEAN PLATELET VOLUME 10.8 fL (9.0-12.2); MONOCYTES # (AUTO) 1.2 10^3/uL (0.0-1.0); MONOCYTES % (AUTO) 13 % (0-12); NEUTROPHILS # (AUTO) 6.3 10^3/uL (1.8-7.8); NEUTROPHILS % (AUTO) 69 % (42-75); PLATELET COUNT 228 10^3/uL (130-400); WHITE BLOOD COUNT 9.2 10^3/uL (4.3-11.0)
[2021-07-31 17:52] LABS: ALBUMIN 3.3 GM/DL (3.2-4.5); POTASSIUM 4.4 MMOL/L (3.6-5.0)
[2021-07-31 17:53] LABS: CALCIUM 9.2 MG/DL (8.5-10.1)
[2021-07-31 17:54] LABS: TOTAL PROTEIN 6.3 GM/DL (6.4-8.2)
[2021-07-31 17:58] LABS: BILIRUBIN,URINE NEGATIVE (NEGATIVE); CLARITY,URINE SL CLOUDY; COLOR,URINE YELLOW; GLUCOSE, URINE (UA) NEGATIVE (NEGATIVE); KETONES,URINE NEGATIVE (NEGATIVE); LEUKOCYTE ESTERASE ,URINE NEGATIVE (NEGATIVE); NITRITE,URINE NEGATIVE (NEGATIVE); PH,URINE 5.5 (5-9); PROTEIN,URINE NEGATIVE (NEGATIVE)
[2021-07-31 17:58] LABS: CREATININE SERUM 0.82 MG/DL (0.60-1.30)
[2021-07-31 18:08] LABS: BACTERIA,URINE TRACE /HPF; GRANULAR CASTS,URINE 0-2 /LPF; SQUAMOUS EPITHELIAL CELL,UR 0-2 /HPF
[2021-07-31] MEDS ORDERED: LACTATED RINGERS 1,000 ML IV ONE ×2 (18:15)
--- NOTE | 2021-07-31 18:26 | ED General ---
General Chief Complaint: Post OP Complications/Pain Stated Complaint: POST OP BACK 07/23 - FEVER, DRAINAGE, PAIN Nursing Triage Note: PT AMB TO ER WITH WALKER AND BACK BRACE WITH C/O POST OP DRAINAGE AROUND TOP OF INCISION THAT BEGAN LAST FRIDAY. PT RAN A 101 FEVER AT HOME TODAY. PT HAD L4-5 FUSION ON JUL 23 Source of Information: Patient, Other (DAUGHTER) History of Present Illness Date Seen by Provider: Jul 31, 2021 Time Seen by Provider: 18:10 Initial Comments PT ARRIVES VIA POV FROM HOME, WITH DAUGHTER PT HAD LUMBAR SPINE SURGERY ON 07/23/[address] DUVAL AT [address] IN [facility]--L4-L5 FUSION WITH HARDWARE IN PLACE WAS DISMISSED ON 07/25/21, HAD DRAIN REMOVED PRIOR TO BEING DISMISSED BEGAN HAVING DRAINAGE FROM THE INCISION ON Friday07/29/21 HAS HAD FEVER TODAY OF 101, AND INCREASED PAIN TO THE AREA NO NAUSEA/VOMITING--HAS BEEN EATING AND DRINKING NORMALLY NO COUGH OR SHORTNESS OF BREATH, OR CHEST PAIN OR PAIN WITH BREATHING NO URINARY SYMPTOMS AND VOIDING A NORMAL AMOUNT NO PARESTHESIAS OR MOTOR DEFICITS HAS BEEN GETTING [facility] DAUGHTER REPORTS THAT HOME HEALTH NURSE ATTEMPTED TO CONTACT DR. DUVAL'S OFFICE THIS AFTERNOON, BUT DID NOT RECEIVE A CALL BACK. PT IS NOT DIABETIC PCP: DR. JAMIL Allergies and Home Medications Allergies Coded Allergies: No Known Drug Allergies (Verified , 08/01/09) Patient Home Medication List Home Medication List Reviewed: Yes Amlodipine Besylate (Norvasc Tablet) 10 Mg Tablet, 10 MG PO DAILY, (Reported) Entered as Reported by: JANETTE MILLER on 01/07/13 0328 Aspirin (Aspirin 325 Mg Tab) 325 Mg Tab, 325 MG PO HS, (Reported) Entered as Reported by: RICHA GRAFF on 05/25/12 1104 Cyanocobalamin (Vitamin B-12) (Vitamin B12) 2,500 Mcg Tablet, 2,500 MCG PO DAILY, (Reported) Entered as Reported by: NIRAJ CEJA on 06/15/15 1115 Enalapril Maleate (Enalapril Maleate) 10 Mg Tablet, 10 MG PO BID, (Reported) Entered as Reported by: RICHA DUGGAN on 05/27/10 1150 Methylprednisolone (Medrol) 4 Mg Tab.ds.pk, 4 MG PO UD Prescribed by: VIKAS CALDERÓN on 05/28/21 1211 Metoprolol Tartrate (Metoprolol Tartrate) 25 Mg Tablet, 25 MG PO BID Prescribed by: ELIAS SALEH on 04/25/17 1041 Multivitamins (Multiple Vitamin) 1 Tab Tablet, 1 TAB PO DAILY, (Reported) Entered as Reported by: OTF STOCK on 08/07/11 1211 Nitroglycerin (Nitroglycerin) 0.4 Mg Tab.subl, 0.4 MG SL UD PRN for CHEST PAIN Prescribed by: YAIMA BRICEÑO on 04/25/17 1102 Blanket 3 Polyunsat Fatty Acids (Fish Oil 1,000 mg Capsule) 1,000 Mg Cap, 3,000 MG PO DAILY, (Reported) Entered as Reported by: MORGAN GONSALES on 04/24/17 1535 Blanket 3 Polyunsat Fatty Acids (Fish Oil 1,000 mg Capsule) 1,000 Mg Cap, 2,000 MG PO HS, (Reported) Entered as Reported by: MORGAN GONSALES on 04/24/17 1535 Oxycodone HCl/Acetaminophen (Oxycodone-Acetaminophen 5-325) 1 Each Tablet, 1 EACH PO Q4H PRN for PAIN-MODERATE Prescribed by: MANFRED YE on 05/25/21 1717 Oxycodone HCl/Acetaminophen (Percocet 7.5-325 mg Tablet) 1 Each Tablet, 1 TAB PO Q6H PRN for PAIN-MODERATE Prescribed by: TOAN ALLEN on 07/01/21 1052 Oxycodone HCl/Acetaminophen (Percocet 7.5-325 mg Tablet) 1 Each Tablet, 1 TAB PO Q4H PRN for PAIN-MODERATE Prescribed by: FERDINAND WEN on 07/09/21 0731 Pravastatin Sodium (Pravastatin Sodium) 80 Mg Tablet, 80 MG PO HS, (Reported) Entered as Reported by: MORGAN GONSALES on 04/24/17 1527 Prednisone (Prednisone) 20 Mg Tab, 20 MG PO DAILY Prescribed by: TOAN ALLEN on 07/01/21 1052 Ranolazine (Ranexa) 1,000 Mg Tab.er.12h, 1,000 MG PO BID, (Reported) Entered as Reported by: MORGAN GONSALES on 04/24/17 1535 Tizanidine HCl (Zanaflex) 4 Mg Capsule, 4 MG PO Q8H PRN for MUSCLE SPASMS Prescribed by: VIKAS CALDERÓN on 05/28/21 1211 Tizanidine HCl (Tizanidine HCl) 4 Mg Tablet, 4 MG PO Q8H PRN for muscle spasm Prescribed by: TOAN ALLEN on 07/01/21 1052 Vitamin E Acetate (Vitamin E) 400 Unit Capsule, 400 UNIT PO DAILY, (Reported) Entered as Reported by: TEGAN WARD on 08/01/09 0916 Review of Systems Review of Systems Constitutional: see HPI, fever EENTM: no symptoms reported Respiratory: no symptoms reported Cardiovascular: no symptoms reported Gastrointestinal: no symptoms reported Genitourinary: no symptoms reported Musculoskeletal: see HPI Skin: see HPI Psychiatric/Neurological: No Symptoms Reported Hematologic/Lymphatic: No Symptoms Reported Immunological/Allergic: no symptoms reported Past Hkrishh-Wrnxkt-Qypodb Hx Patient Social History Tobacco Use?: No Substance use?: No Alcohol Use?: No Pt feels they are or have been: No Immunizations Up To Date Tetanus Booster (TDap): Unknown PED Vaccines UTD: Yes Influenza Vaccine Up-to-Date: Yes; Up-to-Date First/Initial COVID19 Vaccinat: Oct 04 2020 Second COVID19 Vaccination Myron: November 03 2020 Third COVID19 Vaccination Date: Sep 2020 COVID19 Vaccine [employer]: JASPER Seasonal Allergies Seasonal Allergies: No Past Medical History Surgery/Hospitalization HX: LUMBAR SPINE SURGERY L4-L5 FUSION WITH HARDWARE 07/23/[address] DUVAL [address] Surgeries: Yes (inguinal hernia repair, prostate sx, stents) Abdominal, Cardiac, Coronary Stent, Orthopedic, Transurethral Resection Respiratory: No Cardiac: Yes (1 heart stent) Coronary Artery Disease Neurological: No Reproductive Disorders: No Sexually Transmitted Disease: No Genitourinary: Yes Benign Prostatic Hyperpl, Prostate Problems, Kidney Stones Gastrointestinal: No Musculoskeletal: Yes Degenerate Disk Disease, Arthritis, Chronic Back Pain Endocrine: No HEENT: No Loss of Vision: Denies Hearing Impairment: Hard of Hearing Cancer: No Psychosocial: No Integumentary: No Blood Disorders: No Family Medical History Congenital disease 19 FATHER Diabetes mellitus 19 MOTHER Neoplasm 19 MOTHER (maybe colon cancer) G8 BROTHER (lung cancer) No Pertinent Family Hx Physical Exam Vital Signs Vital Signs - First Documented 07/31/21 17:18 Temp 35.7 Pulse 88 Resp 18 B/P (MAP) 129/71 (90) Pulse Ox 94 O2 Delivery Room Air Capillary Refill : Less Than 3 Seconds Height, Weight, BMI Height: 5'10.00" Weight: 201lbs. 0.0oz. 91.921096od; 30.00 BMI Method:Stated General Appearance: No Apparent Distress, WD/WN, Other (USING WALKER. DOES NOT APPEAR TO BE IN ANY DISCOMFORT OR DISTRESS AT THIS TIME) HEENT: Other (ORAL MUCOSA MOIST) Respiratory: Normal Breath Sounds, No Accessory Muscle Use, No Respiratory Distress Cardiovascular: Regular Rate, Rhythm, No Murmur Gastrointestinal: Non Tender, Soft Back: Other (SURGICAL WOUND TO LOWER BACK WITH ADITYA INTACT, SLIGHT SURRO UNDING ERYTHEMA. NO ACTIVE DRAINAGE, BUT THERE IS SEROSANGUINOUS DRAINAGE ON DRESSING. NO FLUCTUANCE. NO STREAKS, NO SWELLING. DOES HAVE SOME MACERATION FROM ADHESIVE TAPE, BUT NO OBVIOUS INFECTION TO THESE AREAS. MARKED TENDERNESS TO LOWER BACK, WORSE AROUND INCISION. ) Extremity: Normal Capillary Refill, No Pedal Edema Neurologic/Psychiatric: Alert, Oriented x3, No Motor/Sensory Deficits, Normal Mood/Affect Skin: Normal Color, Warm/Dry, Other (WOUND ABOVE) Focused Exam Sepsis Stage: Ruled Out Possible Source: Other (PULMONARY AND/OR SURGICAL WOUND) Lactate Level 07/31/21 18:25: Lactic Acid Level 1.07 Time of Focused Exam: 19:30 Respiratory: Normal Breath Sounds, No Accessory Muscle Use, No Respiratory Distress Cardiovascular: Regular Rate, Rhythm, No Murmur Capillary Refill: Less Than 3 Seconds Skin: normal color, warm/dry Lactic Acid Level Laboratory Tests Test 07/31/21 18:25 Lactic Acid Level 1.07 MMOL/L (0.50-2.00) Within 3hrs of presentation: Admin fluids, Admin ABX, Blood cultures prior to ABX's, Focus exam, Lactate level Progress/Results/Core Measures Suspected Sepsis SIRS Temperature: Pulse: 88 Respiratory Rate: 18 Laboratory Tests 07/31/21 17:34: White Blood Count 9.2 Blood Pressure 129 /71 Mean: 90 07/31/21 18:25: Lactic Acid Level 1.07 Laboratory Tests 07/31/21 17:34: Creatinine 0.82, INR Comment 1.0, Platelet Count 228, Total Bilirubin 1.0 Results/Orders Lab Results Laboratory Tests Test 07/31/21 17:34 07/31/21 17:50 07/31/21 18:25 07/31/21 18:30 Range/Units White Blood Count 9.2 4.3-11.0 10^3/uL Red Blood Count 3.54 L 4.30-5.52 10^6/uL Hemoglobin 11.1 L 13.3-17.7 g/dL Hematocrit 33 L 40-54 % Mean Corpuscular Volume 94 80-99 fL Mean Corpuscular Hemoglobin 31 25-34 pg Mean Corpuscular Hemoglobin Concent 33 32-36 g/dL Red Cell Distribution Width 13.1 10.0-14.5 % Platelet Count 228 130-400 10^3/uL Mean Platelet Volume 10.8 9.0-12.2 fL Immature Granulocyte % (Auto) 1 % Neutrophils (%) (Auto) 69 42-75 % Lymphocytes (%) (Auto) 14 12-44 % Monocytes (%) (Auto) 13 H 0-12 % Eosinophils (%) (Auto) 3 0-10 % Basophils (%) (Auto) 0 0-10 % Neutrophils # (Auto) 6.3 1.8-7.8 10^3/uL Lymphocytes # (Auto) 1.3 1.0-4.0 10^3/uL Monocytes # (Auto) 1.2 H 0.0-1.0 10^3/uL Eosinophils # (Auto) 0.3 0.0-0.3 10^3/uL Basophils # (Auto) 0.0 0.0-0.1 10^3/uL Immature Granulocyte # (Auto) 0.1 0.0-0.1 10^3/uL Erythrocyte Sedimentation Rate 62 H 0-30 MM/HR Prothrombin Time 13.5 12.2-14.7 SEC INR Comment 1.0 0.8-1.4 Activated Partial Thromboplast Time 33 24-35 SEC Sodium Level 133 L 135-145 MMOL/L Potassium Level 4.4 3.6-5.0 MMOL/L Chloride Level 100 98-107 MMOL/L Carbon Dioxide Level 22 21-32 MMOL/L Anion Gap 11 5-14 MMOL/L Blood Urea Nitrogen 20 H 7-18 MG/DL Creatinine 0.82 0.60-1.30 MG/DL Estimat Glomerular Filtration Rate 90 BUN/Creatinine Ratio 24 Glucose Level 106 H 70-105 MG/DL Calcium Level 9.2 8.5-10.1 MG/DL Corrected Calcium 9.8 8.5-10.1 MG/DL Total Bilirubin 1.0 0.1-1.0 MG/DL Aspartate Amino Transf (AST/SGOT) 29 5-34 U/L Alanine Aminotransferase (ALT/SGPT) 35 0-55 U/L Alkaline Phosphatase 75 40-136 U/L C-Reactive Protein High Sensitivity 12.68 H 0.00-0.50 MG/DL Total Protein 6.3 L 6.4-8.2 GM/DL Albumin 3.3 3.2-4.5 GM/DL Procalcitonin 0.09 <0.10 NG/ML Urine Color YELLOW Urine Clarity SL CLOUDY Urine pH 5.5 5-9 Urine Specific [place] 1.025 H 1.016-1.022 Urine Protein NEGATIVE NEGATIVE Urine Glucose (UA) NEGATIVE NEGATIVE Urine Ketones NEGATIVE NEGATIVE Urine Nitrite NEGATIVE NEGATIVE Urine Bilirubin NEGATIVE NEGATIVE Urine Urobilinogen 1.0 < = 1.0 MG/DL Urine Leukocyte Esterase NEGATIVE NEGATIVE Urine RBC (Auto) NEGATIVE NEGATIVE Urine RBC NONE /HPF Urine WBC 5-10 H /HPF Urine Squamous Epithelial Cells 0-2 /HPF Urine Crystals NONE /LPF Urine Bacteria TRACE /HPF Urine Casts PRESENT /LPF Urine Granular Casts 0-2 H /LPF Urine Mucus LARGE H /LPF Urine Culture Indicated NO Lactic Acid Level 1.07 0.50-2.00 MMOL/L Influenza Type A (RT-PCR) Not Detected Not Detecte Influenza Type B (RT-PCR) Not Detected Not Detecte SARS-CoV-2 RNA (RT-PCR) Not Detected Not Detecte My Orders Orders - VIKAS CALDERÓN DO Ed Iv/Invasive Line Start (07/31/21 18:10) Lactated Ringers (Lr 1000 Ml Iv Solution (07/31/21 18:15) Blood Culture (07/31/21 18:10) Urinalysis (07/31/21 18:10) Urine Culture (07/31/21 18:10) Protime With Inr (07/31/21 18:10) Partial Thromboplastin Time (07/31/21 18:10) Chest 1 View, Ap/Pa Only (07/31/21 18:10) Ed Iv/Invasive Line Start (07/31/21 18:10) Vital Signs Adult Sepsis Patie Q15M (07/31/21 18:10) Remove Rings In Anticipation O (07/31/21 18:10) Lactic Acid Analyzer (07/31/21 18:10) Lactated Ringers (Lr 1000 Ml Iv Solution (07/31/21 18:15) Procalcitonin (Pct) (07/31/21 18:10) Erythrocyte Sedimentation Rate (07/31/21 18:12) Influenza A And B By Pcr (07/31/21 18:12) Covid 19 Inhouse Test (07/31/21 18:12) Cefepime Injection (Maxipime Injection) (07/31/21 18:30) Medications Given in ED Current Medications Medications Dose Ordered Sig/Daniel Route Start Time Stop Time Status Last Admin Dose Admin Cefepime HCl 2000 mg/Sodium Chloride 50 ml @ 100 mls/hr ONCE ONCE IV 07/31/21 18:30 07/31/21 18:59 DC 07/31/21 18:46 100 MLS/HR Lactated Ringer's 1,000 ml @ 0 mls/hr Q0M ONCE IV 07/31/21 18:15 07/31/21 18:16 DC 07/31/21 18:30 1,000 MLS/HR Lactated Ringer's 1,000 ml @ 0 mls/hr Q0M ONCE IV 07/31/21 18:15 07/31/21 18:16 DC 07/31/21 18:30 1,000 MLS/HR Vital Signs/I&O 07/31/21 17:18 Temp 35.7 Pulse 88 Resp 18 B/P (MAP) 129/71 (90) Pulse Ox 94 O2 Delivery Room Air Capillary Refill : Less Than 3 Seconds Blood Pressure Mean: 90 Progress Note : Progress Note GIVEN IV FLUIDS AND CEFEPIME Diagnostic Imaging Comments CXR--PER RADIOLOGIST REPORT AT 1945 Frontal chest obtained at 07:34 p.m. and compared to 04/24/2017. Heart and mediastinal silhouette are normal in appearance. There are mild perihilar infiltrates, right greater than left. There is no pneumothorax or pleural fluid. IMPRESSION: Mild perihilar infiltrates, right greater than left. No pneumothorax or pleural fluid. Follow-up is recommended. Reviewed: Reviewed by Me Departure Communication (Admissions) 1829--CALLED [facility]. UNABLE TO PAGE PHYSICIAN 1831--CALLED JO-ANN JASSO [employer]THOPED[employer] SURGE[employer] [address] MAGISTRATE 1842--SPOKE WITH DR. EARLY, ORTHOPEDIC SURGEON [address] MAGISTRATE. HE WILL CONTACT DR. BERENICE MANUEL AND CALL BACK, NO ADDITIONAL RECOMMENDATIONS AT THIS TIME. DOES NOT RECOMMEND IMAGING OF BACK/SPINE AT THIS TIME. Impression Primary Impression: Postoperative fever Additional Impressions: S/P LUMBAR SPINE SURGERY PERIHILAR INFILTRATES Disposition: HOME, SELF-CARE Condition: Stable Departure-Patient Inst. Decision time for Depature: 19:47 Referrals: [facility] (PCP) Primary Care Physician MARIA G JAMIL MD (Family) Primary Care Physician WESLEY DUVAL DO Patient Instructions: Community-Acquired Pneumonia, Adult (DC), Wound Infection Add. Discharge Instructions: LOTS OF CLEAR LIQUIDS--WATER, BROTH, JELLO, GATORADE TYLENOL AND MOTRIN NEEDED FOR PAIN OR FEVER CONTINUE YOUR PAIN MEDICATIONS NEEDED CONTINUE ALL POST OP INSTRUCTIONS USE YOUR INCENTIVE SPIROMETER INSTRUCTED FOLLOW UP WITH DR. DUVAL THIS WEEK FOR RECHECK OF SURGICAL SITE AND FEVER FOLLOW UP WITH [facility] THIS WEEK FOR FURTHER EVALUATION OF FEVER AND POSSIBLE PNEUMONIA Scripts Cefdinir (Cefdinir) 300 Mg Capsule 300 MG PO BID, #20 CAP Prov: VIKAS CALDERÓN DO 07/31/21 VIKAS CALDERÓN DO Jul 31, 2021 18:25
[2021-07-31] MEDS ORDERED: CEFEPIME INJECTION 2,000 MG in NS (IVPB) 50 ML IV ONE (18:30)
[2021-07-31 19:11] LABS: PROTHROMBIN TIME PATIENT 13.5 SEC (12.2-14.7)
--- NOTE | 2021-07-31 19:41 | Diagnostic Imaging Report ---
INDICATION: Postop fever. Frontal chest obtained at 07:34 p.m. and compared to 04/24/2017. Heart and mediastinal silhouette are normal in appearance. There are mild perihilar infiltrates, right greater than left. There is no pneumothorax or pleural fluid. IMPRESSION: Mild perihilar infiltrates, right greater than left. No pneumothorax or pleural fluid. Follow-up is recommended. Dictated by: Dictated on workstation # [id number]
[2021-07-31] MEDS ORDERED: CEFD300C3 PO (19:54)
[2021-07-31 20:15] VITALS: BP 126/72
== END 2021-07-31 20:16 | disposition home or self-care (01) ==
LOC: EDUNIT# 17:02 → ER 17:05
DX: R50.82 Postprocedural fever (principal); R91.8 Other nonspecific abnormal finding of lung field; I25.10 Atherosclerotic heart disease of native coronary artery without angina pectoris; G89.29 Other chronic pain; M54.9 Dorsalgia, unspecified; Z20.822 Contact with and (suspected) exposure to COVID-19; Z79.899 Other long term (current) drug therapy; Z79.891 Long term (current) use of opiate analgesic; Z79.82 Long term (current) use of aspirin
CPT/HCPCS: 36415; 71045; 80053; 81000; 83605; 84145; 85025; 85610; 85652; 85730; 86141; 87040; 87636

== ENCOUNTER → 2021-08-14 | Outpatient (CLI) | payer MEDICARE ==
[~2021-08-14] MED LIST changes: +CEFD300C3 PO
--- NOTE | 2021-08-14 13:41 | Diagnostic Imaging Report ---
Indication: Follow-up pneumonia. TIME OF EXAM: 11:14 AM Correlation is made with prior chest 07/31/2021. Heart size stable. There is some patchy infiltrate right upper lobe however improved since prior. There is minimal infiltrate left upper lobe, also improved since prior. Lower lung rojas are clear. There is no effusion or pneumothorax. IMPRESSION: Bilateral upper lobe infiltrates, showing mild improvement when compared with examination from 2 weeks earlier. Dictated by: Dictated on workstation # [id number]
== END ==
LOC: RAD 10:26
PROVIDERS: ATTEND Orthopaedic Surgery Orthopaedic Trauma
DX: R91.8 Other nonspecific abnormal finding of lung field (principal); R07.1 Chest pain on breathing
CPT/HCPCS: 71046

== ENCOUNTER → 2021-08-23 | Outpatient (CLI) | payer MEDICARE ==
--- NOTE | 2021-08-23 12:57 | Diagnostic Imaging Report ---
EXAMINATION: CT chest without contrast. TECHNIQUE: Multiple contiguous axial images were obtained through the chest without the use of intravenous contrast. All CT scans use one or more of the following dose optimizing techniques: automated exposure control, MA and/or KvP adjustment based on patient size and exam type or iterative reconstruction. HISTORY: Pneumonia COMPARISON: 01/23/2021 FINDINGS: Thyroid: The thyroid is normal. Mediastinum: Heart size is normal without significant pericardial effusion. 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 There are vascular calcifications of the aorta and coronary vessels. No suspicious lymphadenopathy. Lungs and airways: There are are mild groundglass opacities seen within the upper lobes. There is no focal consolidation, pleural effusion, or pneumothorax. There are scattered calcified granulomas. Multiple bilateral pulmonary nodules are unchanged, measuring up to 0.7 x 0.4 cm in the inferior left upper lobe (series 3 image 97). There is bronchiectasis within the right lower lobe. Upper abdomen: There are gallstones present. There are multiple nonobstructing bilateral renal calculi without hydronephrosis. Musculoskeletal: Degenerative changes of the spine without suspicious osseous lesion or compression fracture. IMPRESSION: 1. Mild groundglass opacities within the bilateral upper lobes could be seen with atypical infection. 2. Stable bilateral pulmonary nodules measuring up to 0.6 cm in average. These are stable from studies dating back to 09/24/2019. Dictated by: Dictated on workstation # [id number]
== END ==
LOC: RAD 12:21
PROVIDERS: ATTEND Pediatrics
DX: J18.9 Pneumonia, unspecified organism (principal); R91.8 Other nonspecific abnormal finding of lung field
CPT/HCPCS: 71250

== ENCOUNTER → 2021-10-17 | Outpatient (CLI) | payer MEDICARE, OTHER ==
[~2021-10-17] VITALS: Ht 177 cm; Wt 94.0 kg
[~2021-10-17] MED LIST changes: +CATHETER FLUSH 10 ML SYR IVP PRN; +REGADENOSON 0.4 MG/5 ML SYR (LEXISCAN) IV ONE
[2021-10-17 13:23] VITALS: BP 164/77
--- NOTE | 2021-10-17 15:20 | Cardiology Stress Test Report ---
Stress Test Report Date of Procedure/Referring: Date of Procedure: Oct 17, 2021 PCP Yaima Sherstha MD Admitting Physician Center[facility] Indications: CP Baseline Heart Rate: 50 Baseline Blood Pressure: Blood Pressure Systolic: 164 Blood Pressure Diastolic: 77 Baseline Vitals Vital Signs Date Time Temp Pulse Resp B/P (MAP) Pulse Ox O2 Delivery O2 Flow Rate FiO2 10/17/21 13:23 50 164/77 (106) Baseline EKG: Baseline EKG: NSR Summary After explaining the procedure to the patient, he signed a consent and then brought to the stress nuclear laboratory. Patient received 0.4 mg Lexiscan for stress test, ECG, heart rate and blood pressure were monitored continuously. Resting and stress dose of radio tracer were injected, imaging was acquired and reviewed in short axis, horizontal long axis and vertical long axis views. TID: 1.02 SSS: 2 SDS: 2 EF: 63 1. Patient tolerated Lexiscan well 2. No significant ischemia or infarction on SPECT images 3. Normal left ventricular size, EF 63% YAIMA SHRESTHA MD Oct 17, 2021 15:20
== END ==
LOC: CARD 11:00
PROVIDERS: ATTEND Internal Medicine Cardiovascular Disease
DX: I11.9 Hypertensive heart disease without heart failure (principal); I25.10 Atherosclerotic heart disease of native coronary artery without angina pectoris
CPT/HCPCS: 78452; 93017; 93306; A9502

== ENCOUNTER 2021-11-26 13:14 | Outpatient (RCR) | payer MEDICARE, OTHER ==
[~2021-11-26 13:14] MED LIST changes: -CATHETER FLUSH 10 ML SYR IVP PRN; -REGADENOSON 0.4 MG/5 ML SYR (LEXISCAN) IV ONE
== END 2021-12-15 | disposition home or self-care (01) ==
LOC: ONC 13:14
PROVIDERS: ATTEND Radiology Radiation Oncology
DX: C61 Malignant neoplasm of prostate (principal); I10 Essential (primary) hypertension; J45.909 Unspecified asthma, uncomplicated; E78.00 Pure hypercholesterolemia, unspecified; I25.2 Old myocardial infarction; Z79.899 Other long term (current) drug therapy
CPT/HCPCS: 99204

== ENCOUNTER 2022-02-20 06:15 | Outpatient (CLI) | payer MEDICARE, OTHER ==
[~2022-02-20] VITALS: Ht 177.8 cm; Wt 89.5 kg
[2022-02-21] MEDS ORDERED: MONT-40 PO (15:00)
[2022-02-21] MEDS ORDERED: LISI40TA9 PO (15:00)
[2022-02-21] MEDS ORDERED: [UNRECOGNIZED DRUG - CODE] PO (15:00)
[2022-02-21] MEDS ORDERED: ISOS30TA82 PO (15:00)
[2022-02-21] MEDS ORDERED: DOCU-143 PO (15:00)
[2022-02-21] MEDS ORDERED: ATOR40TA70 PO (15:00)
[2022-02-21] MEDS ORDERED: BUDE10.22 IH (15:00)
== END 2022-02-21 15:10 | disposition home or self-care (01) ==
LOC: PREOP 06:15
PROVIDERS: ATTEND Radiology Radiation Oncology
DX: Z01.818 Encounter for other preprocedural examination (principal)

== ENCOUNTER 2022-02-27 10:15 | Day surgery (SDC) | payer MEDICARE, OTHER ==
[~2022-02-27] VITALS: Ht 177.8 cm; Wt 89.5 kg
[2022-02-27] VITALS (10 sets, daily range): BP systolic 109–143; BP diastolic 66–96
[~2022-02-27 10:15] MED LIST changes: +ATOR40TA70 PO; +BUDE10.22 IH; +DOCU-143 PO; +ISOS30TA82 PO; +LISI40TA9 PO; +MONT-40 PO; +[UNRECOGNIZED DRUG - CODE] PO
--- NOTE | 2022-02-27 10:17 | Progress Note-Pre Operative ---
Pre-Operative Progress Note H&P Reviewed The H&P was reviewed, patient examined and no changes noted. Date Seen by Provider: Feb 27, 2022 Time Seen by Provider: 10:16 Date H&P Reviewed: Feb 27, 2022 Time H&P Reviewed: 10:16 Pre-Operative Diagnosis: Prostate cancer cTX, PSA 26.06, [place] 9 (4+5) MARY REEVES MD Feb 27, 2022 10:17
--- NOTE | 2022-02-27 10:23 | Discharge Inst-Simple/Standard ---
Discharge Inst-Standard Reconcile Patient Problems Problems Reviewed?: Yes Discharge Medications New, Converted or Re-Newed RX: Other (Patient already has Cipro with written instructions.) Patient Instructions/Follow Up Plan of Care/Instructions/FU: 1)Treatment planning ct scan at [facility] cancer center scheduled for 03/14/22 at 9:00 a.m. Drink 1/2 bottle of oral contrast at 8:30 a.m. at home prior to scan. Activity as Tolerated: Yes Discharge Diet: No Restrictions MARY REEVES MD Feb 27, 2022 10:23
[2022-02-27] MEDS ORDERED: LACTATED RINGERS 1,000 ML IV PRN (10:45)
[2022-02-27] MEDS ORDERED: ONDANSETRON 4 MG/2 ML (SDV) Z0FRAN ONE (12:45)
[2022-02-27] MEDS ORDERED: proPOfol 200 MG/20 ML (DIPRIVAN) VIAL IV ONE (12:45)
[2022-02-27] MEDS ORDERED: LIDOCAINE PF 2% 5 ML (XYLOCAINE) VIAL ONE (12:45)
[2022-02-27] MEDS ORDERED: fentaNYL INJ 100 MCG/2 ML AMP ONE (12:45)
[2022-02-27] MEDS ORDERED: ROCURONIUM 50 MG/5 ML (ZEMURON) VIAL IV ONE (13:03)
[2022-02-27] MEDS ORDERED: SEVOFLURANE (ULTANE) 15 ML INHAL SOLN ONE (13:18)
[2022-02-27] MEDS ORDERED: ONDANSETRON 4 MG/2 ML (SDV) Z0FRAN IVP PRN (13:30)
[2022-02-27] MEDS ORDERED: morphine INJ 10 MG/ML 1ML (SYR OR VIAL) IVP ONE (13:30)
--- NOTE | 2022-02-27 13:32 | Progress Note-Post Operative ---
Post-Operative Progess Note Surgeon (s)/Disaster Recovery Analyst (s) Surgeon Slim STOCKTON MD Disaster Recovery Analyst: MARY REEVES MD Pre-Operative Diagnosis Prostate cancer cTX, PSA 26.06, [place] 9 (4+5) Post-Operative Diagnosis Same as preop Procedure & Operative Findings Date of Procedure 02/27/22 Procedure Performed/Findings (1) Placement of fiducial gold seed markers (2) Injection of biodegradable hydrogel prostate-rectal spacer utilizing the SpaceFTR[employer] [place] system Anesthesia Type General Estimated Blood Loss Estimated blood loss (mL): None Specimens/Packing Specimens Removed None Packing: None MARY REEVES MD Feb 27, 2022 13:31
--- NOTE | 2022-02-27 15:09 | Anesthesia-General Post-Op ---
General Patient Condition Mental Status/LOC: Same as Preop Cardiovascular: Satisfactory Nausea/Vomiting: Absent Respiratory: Satisfactory Pain: Controlled Complications: Absent Post Op Complications Complications None Follow Up Care/Instructions Patient Instructions None needed. Anesthesia/Patient Condition Patient Condition Patient is doing well, no complaints, stable vital signs, no apparent adverse anesthesia problems. No complications reported per nursing. SANCHEZ PICHARDO CRNA Feb 27, 2022 15:09
== END 2022-02-27 15:35 ==
LOC: SDC 10:15
PROVIDERS: ATTEND Radiology Radiation Oncology
DX: C61 Malignant neoplasm of prostate (principal)
CPT/HCPCS: 55874; 55876; 87081; C1889

== ENCOUNTER → 2022-04-17 | Outpatient (RCR) | payer MEDICARE, OTHER | END | disposition home or self-care (01) | LOC: ONC 03-18 08:49 | PROVIDERS: ATTEND Radiology Radiation Oncology | DX: Z51.0 Encounter for antineoplastic radiation therapy (principal); I10 Essential (primary) hypertension; I25.10 Atherosclerotic heart disease of native coronary artery without angina pectoris; I65.29 Occlusion and stenosis of unspecified carotid artery; E78.2 Mixed hyperlipidemia | CPT/HCPCS: 77300; 77301; 77334; 77336; 77338; 77385 ==

== ENCOUNTER 2022-05-02 13:35 | Emergency (ER) | payer MEDICARE ==
[~2022-05-02] VITALS: Ht 178 cm; Wt 93.4 kg
[2022-05-02] MEDS ORDERED: methylPREDNISolone 125 MG (Solu-MEDROL) VIAL IV STA (13:56)
--- NOTE | 2022-05-02 13:56 | ED Cough/URI ---
General Stated Complaint: CP,COUGH,CONGESTION,WHEEZING History of Present Illness Date Seen by Provider: May 02, 2022 Time Seen by Provider: 13:52 Initial Comments Patient reports continued cough and congestion. Was seen by PCP and recently placed on antibiotics and has been doing nebulizer treatments at home. Reports that he has continued to have a cough and does not feel like he is getting any better. Reports that cough is nonproductive in nature. Has been tested for COVID recently and negative. Denies exposure that he is aware of. History of bronchitis in the past. Timing/Duration: week, getting worse Severity/Quality: dry cough, sputum, blood streaked sputum Prior Episodes/Possible Cause: chronic episodes Modifying Factors: Worse With Coughing; Improves With Lying Down, Improves With Rest Associated Symptoms: chest pain/soreness, cough, headache, nasal congestion, nasal drainage, shortness of breath, wheezing Allergies and Home Medications Allergies Coded Allergies: No Known Drug Allergies (Verified , 08/01/09) Patient Home Medication List Home Medication List Reviewed: Yes Amlodipine Besylate (Norvasc Tablet) 10 Mg Tablet, 10 MG PO DAILY, (Reported) Entered as Reported by: JANETTE MILLER on 01/07/13 0328 Atorvastatin Calcium (Atorvastatin Calcium) 40 Mg Tablet, 40 MG PO HS, (Reported) Entered as Reported by: ROSENDO WANG on 02/21/22 1500 Benzonatate (Benzonatate) 200 Mg Capsule, 200 MG PO TID PRN for COUGH Prescribed by: Mariel Michel on 05/02/22 1457 Budesonide/Formoterol Fumarate (Symbicort 80-4.5 Mcg Inhaler) 80 Mcg-4.5 Mcg/Actuation Hfa.aer.ad, 2 PUFF IH BID, (Reported) Entered as Reported by: ROSENDO WANG on 02/21/22 1500 Docusate Sodium (Colace) 100 Mg Capsule, 100 MG PO DAILY, (Reported) Entered as Reported by: ROSENDO WANG on 02/21/22 1500 Ipratropium/Albuterol Sulfate (Iprat-Albut 0.5-3(2.5) mg/3 ml) 0.5 Mg-3 Mg (2.5 Mg Base)/3 Ml Ampul.neb, 3 ML IH Q4H PRN for SHORTNESS OF BREATH Prescribed by: Mariel Michel on 05/02/22 1457 Isosorbide Mononitrate (Isosorbide Mononitrate ER) 30 Mg Tab.er.24h, 30 MG PO DAILY, (Reported) Entered as Reported by: ROSENDO WANG on 02/21/221499 Lisinopril (Lisinopril) 40 Mg Tablet, 40 MG PO DAILY, (Reported) Entered as Reported by: ROSENDO WANG on 02/21/221499 Montelukast Sodium (Montelukast Sodium) 10 Mg Tablet, 10 MG PO DAILY, (Reported) Entered as Reported by: ROSENDO WANG on 02/21/22 1500 Nitroglycerin (Nitroglycerin) 0.4 Mg Tab.subl, 0.4 MG SL UD PRN for CHEST PAIN Prescribed by: YAIMA BRICEÑO on 04/25/17 110 Monarch-3/Dha/Epa/Fish Oil ([facility]vs Fish Oil 1,000 mg Softgel) 300 Mg-1,000 Mg Capsule, 1 EACH PO UD, (Reported) Entered as Reported by: ROSENDO WANG on 02/21/221499 Prednisone (Prednisone) 20 Mg Tab, 60 MG PO DAILY Prescribed by: Mariel Michel on 05/02/22 145 Review of Systems Review of Systems Constitutional: No chills, No dizziness, No fever, No weakness EENTM: nose congestion; No ear discharge, No ear pain, No mouth pain, No throat pain, No throat swelling Respiratory: cough, dyspnea on exertion, phlegm, short of breath; No stridor; wheezing Cardiovascular: No chest pain, No palpitations Gastrointestinal: No diarrhea, No nausea, No vomiting Musculoskeletal: No back pain, No muscle pain Skin: No pruritus, No rash All Other Systems Reviewed Negative Unless Noted: Yes Past Phaxdbp-Cxfepa-Pwdkpk Hx Immunizations Up To Date Tetanus Booster (TDap): Unknown PED Vaccines UTD: Yes First/Initial COVID19 Vaccinat: Oct 04 2020 Second COVID19 Vaccination Myron: November 03 2020 Third COVID19 Vaccination Date: Jun 18 2021 Seasonal Allergies Seasonal Allergies: No Past Medical History Surgery/Hospitalization HX: LUMBAR SPINE SURGERY L4-L5 FUSION WITH HARDWARE 07/23/[address] DUVAL [address] Surgeries: Yes (inguinal hernia repair, prostate sx, stents) Abdominal, Cardiac, Coronary Stent, Orthopedic, Transurethral Resection Respiratory: Yes (MILD) Asthma Currently Using CPAP: No Currently Using BIPAP: No Cardiac: Yes (1 heart stent) Coronary Artery Disease, High Cholesterol, Hypertension Neurological: No Reproductive Disorders: No Sexually Transmitted Disease: No Genitourinary: Yes Benign Prostatic Hyperpl, Prostate Problems, Kidney Stones Gastrointestinal: No Musculoskeletal: Yes Degenerate Disk Disease, Arthritis, Chronic Back Pain Endocrine: No HEENT: Yes (GLASSES) Loss of Vision: Denies Hearing Impairment: Hard of Hearing Cancer: Yes Prostate What Type of Treatment Did You: Surgical Intervention Psychosocial: No Integumentary: No Blood Disorders: No Family Medical History Reviewed Nursing Family Hx Congenital disease 19 FATHER Diabetes mellitus 19 MOTHER Neoplasm 19 MOTHER (maybe colon cancer) G8 BROTHER (lung cancer) No Pertinent Family Hx Physical Exam Vital Signs - First Documented 05/02/22 05/02/22 13:45 14:30 Temp 36.7 Pulse 76 Resp 22 B/P (MAP) 153/78 (103) Pulse Ox 94 O2 Delivery Room Air O2 Flow Rate 0 Capillary Refill : Height: 5'10.00" Weight: 201lbs. 0.0oz. [id number]; 28.31 BMI Method:Stated General Appearance: WD/WN, no apparent distress HEENT: PERRL/EOMI, normal ENT inspection, TMs normal, pharynx normal Neck: non-tender, full range of motion, supple Respiratory: chest non-tender, no respiratory distress, no accessory muscle use, decreased breath sounds (throughout), wheezing (inspiratory and expiratory throughout all rojas), expiration, inspiration Cardiovascular: regular rate, rhythm, no edema Gastrointestinal: normal bowel sounds, non tender, soft Extremities: normal range of motion, non-tender, normal inspection Neurologic/Psychiatric: alert, normal mood/affect, oriented x 3 Skin: normal color, warm/dry Progress/Results/Core Measures Suspected Sepsis SIRS Temperature: Pulse: Respiratory Rate: Laboratory Tests 05/02/22 13:51: White Blood Count 4.7 Blood Pressure / Mean: Laboratory Tests 05/02/22 13:51: Creatinine 0.81, Platelet Count 183, Total Bilirubin 0.5 Results/Orders Lab Results Laboratory Tests Test 05/02/22 13:51 Range/Units White Blood Count 4.7 4.3-11.0 10^3/uL Red Blood Count 4.28 L 4.30-5.52 10^6/uL Hemoglobin 13.3 13.3-17.7 g/dL Hematocrit 39 L 40-54 % Mean Corpuscular Volume 91 80-99 fL Mean Corpuscular Hemoglobin 31 25-34 pg Mean Corpuscular Hemoglobin Concent 34 32-36 g/dL Red Cell Distribution Width 13.2 10.0-14.5 % Platelet Count 183 130-400 10^3/uL Mean Platelet Volume 10.9 9.0-12.2 fL Immature Granulocyte % (Auto) 0 % Neutrophils (%) (Auto) 70 42-75 % Lymphocytes (%) (Auto) 13 12-44 % Monocytes (%) (Auto) 11 0-12 % Eosinophils (%) (Auto) 5 0-10 % Basophils (%) (Auto) 1 0-10 % Neutrophils # (Auto) 3.3 1.8-7.8 10^3/uL Lymphocytes # (Auto) 0.6 L 1.0-4.0 10^3/uL Monocytes # (Auto) 0.5 0.0-1.0 10^3/uL Eosinophils # (Auto) 0.2 0.0-0.3 10^3/uL Basophils # (Auto) 0.0 0.0-0.1 10^3/uL Immature Granulocyte # (Auto) 0.0 0.0-0.1 10^3/uL Sodium Level 142 135-145 MMOL/L Potassium Level 3.9 3.6-5.0 MMOL/L Chloride Level 108 H 98-107 MMOL/L Carbon Dioxide Level 21 21-32 MMOL/L Anion Gap 13 5-14 MMOL/L Blood Urea Nitrogen 17 7-18 MG/DL Creatinine 0.81 0.60-1.30 MG/DL Estimat Glomerular Filtration Rate 88 BUN/Creatinine Ratio 21 Glucose Level 112 H 70-105 MG/DL Calcium Level 9.6 8.5-10.1 MG/DL Corrected Calcium 9.5 8.5-10.1 MG/DL Total Bilirubin 0.5 0.1-1.0 MG/DL Aspartate Amino Transf (AST/SGOT) 24 5-34 U/L Alanine Aminotransferase (ALT/SGPT) 28 0-55 U/L Alkaline Phosphatase 81 40-136 U/L B-Type Natriuretic Peptide 93.3 <100.0 PG/ML Total Protein 6.9 6.4-8.2 GM/DL Albumin 4.1 3.2-4.5 GM/DL My Orders Orders - MARIEL MICHEL APRN Albuterol/Ipra Inhalation Soln (Duoneb I (05/02/22 14:00) Rt Request For Service (05/02/22 13:56) Methylprednisolone Sod Succ (Solu-Medrol (05/02/22 13:56) Bnp [place] (05/02/22 13:56) Cbc With Automated Diff (05/02/22 13:56) Comprehensive Metabolic Panel (05/02/22 13:56) Svn Small Volume Nebulizer (05/02/22 13:56) Medications Given in ED Current Medications Medications Dose Ordered Sig/Daniel Route Start Time Stop Time Status Last Admin Dose Admin Albuterol/ Ipratropium 3 ml ONCE ONCE INH 05/02/22 14:00 05/02/22 14:01 DC 05/02/22 14:30 3 ML Vital Signs/I&O 05/02/22 05/02/22 13:45 14:30 Temp 36.7 Pulse 76 Resp 22 B/P (MAP) 153/78 (103) Pulse Ox 94 O2 Delivery Room Air O2 Flow Rate 0 Capillary Refill : Progress Note : Progress Note Patient comes from PCP for cough and continued congestion. Was recently on antibiotics for the same symptoms. Reports that his cough has continued to worsen. Was tested for COVID today and negative. Denied exposure that he is aware of. CXR done today was negative in addition. Will check some baseline labs and give breathing treatment and steroids and then reassess. 1450: Patient reports that he is feeling a little better at this time. Increased air movement after breathing treatment. Still has a few faint expiratory wheezes appreciated on exam. Discussed home treatments with patient. Has a nebulizer machine at home already. Does not have the medication for it. Will send out prescription for that, steroids and cough suppressant. Reasons to return to the ER were discussed with patient and in addition. Departure Impression Primary Impression: Bronchitis Disposition: HOME, SELF-CARE Condition: Stable Departure-Patient Inst. Decision time for Depature: 14:55 Referrals: FROYLAN MAY DO (PCP/Family) Primary Care Physician Patient Instructions: Acute Bronchitis Add. Discharge Instructions: 1. Home and rest. 2. Push fluids. 3. Alternate Tylenol/Ibuprofen as needed for pain. 4. May continue over the counter medications as directed per package instructions. 5. Start Prednisone and take as directed until finished. Start this medication tomorrow as you already had a dose of steroids today. 6. Benzonatate as directed as needed for cough. 7. Breathing treatments as directed as needed. 8. Return here if worse or concerns. Scripts Benzonatate (Benzonatate) 200 Mg Capsule 200 MG PO TID PRN for COUGH, #30 CAP Prov: MARIEL MICHEL APRN 05/02/22 Prednisone (Prednisone) 20 Mg Tab 60 MG PO DAILY for 5 Days, #15 TAB 0 Refills Prov: MARIEL MICHEL APRN 05/02/22 Ipratropium/Albuterol Sulfate (Iprat-Albut 0.5-3(2.5) mg/3 ml) 0.5 Mg-3 Mg (2.5 Mg Base)/3 Ml Ampul.neb 3 ML IH Q4H PRN for SHORTNESS OF BREATH, #90 EACH 1 Refill Prov: MARIEL MICHEL APRN 05/02/22 MARIEL MICHEL APRN May 02, 2022 13:56
[2022-05-02] MEDS ORDERED: RT-ALBUTEROL/IPRATROPIUM 3 ML (DUONEB) VIAL INH ONE (14:00)
[2022-05-02 14:14] LABS: BASOPHILS % (AUTO) 1 % (0-10); EOSINOPHILS # (AUTO) 0.2 10^3/uL (0.0-0.3); EOSINOPHILS % (AUTO) 5 % (0-10); HEMATOCRIT 39 % (40-54); HEMOGLOBIN 13.3 g/dL (13.3-17.7); LYMPHOCYTES # (AUTO) 0.6 10^3/uL (1.0-4.0); LYMPHOCYTES % (AUTO) 13 % (12-44); MEAN CORPUSCULAR HEMOGLOBIN 31 pg (25-34); MEAN CORPUSCULAR HGB CONC 34 g/dL (32-36); MEAN CORPUSCULAR VOLUME 91 fL (80-99); MEAN PLATELET VOLUME 10.9 fL (9.0-12.2); MONOCYTES # (AUTO) 0.5 10^3/uL (0.0-1.0); MONOCYTES % (AUTO) 11 % (0-12); NEUTROPHILS # (AUTO) 3.3 10^3/uL (1.8-7.8); NEUTROPHILS % (AUTO) 70 % (42-75); PLATELET COUNT 183 10^3/uL (130-400); WHITE BLOOD COUNT 4.7 10^3/uL (4.3-11.0)
[2022-05-02 14:23] LABS: ALBUMIN 4.1 GM/DL (3.2-4.5); POTASSIUM 3.9 MMOL/L (3.6-5.0)
[2022-05-02 14:24] LABS: CALCIUM 9.6 MG/DL (8.5-10.1)
[2022-05-02 14:26] LABS: TOTAL PROTEIN 6.9 GM/DL (6.4-8.2)
[2022-05-02 14:27] LABS: BILIRUBIN,TOTAL 0.5 MG/DL (0.1-1.0)
[2022-05-02 14:29] LABS: CREATININE SERUM 0.81 MG/DL (0.60-1.30)
[2022-05-02] MEDS ORDERED: IPRA3AMP31 IH (14:57)
[2022-05-02] MEDS ORDERED: PRD20T PO (14:57)
[2022-05-02] MEDS ORDERED: BENZ200C51 PO (14:57)
[2022-05-02 15:07] VITALS: BP 131/84
== END 2022-05-02 15:09 | disposition home or self-care (01) ==
LOC: EDUNIT# 13:35 → ER 13:37
DX: J45.909 Unspecified asthma, uncomplicated (principal)
CPT/HCPCS: 36415; 80053; 83880; 85025; 94640; 99285

== ENCOUNTER → 2022-05-17 | Outpatient (RCR) | payer MEDICARE, OTHER ==
[~2022-05-17] MED LIST changes: +BENZ200C51 PO; +IPRA3AMP31 IH
== END | disposition home or self-care (01) ==
LOC: ONC 04-18 10:23
PROVIDERS: ATTEND Radiology Radiation Oncology
DX: Z51.0 Encounter for antineoplastic radiation therapy (principal); C61 Malignant neoplasm of prostate; I10 Essential (primary) hypertension; I25.10 Atherosclerotic heart disease of native coronary artery without angina pectoris; I65.29 Occlusion and stenosis of unspecified carotid artery; E78.2 Mixed hyperlipidemia; J44.9 Chronic obstructive pulmonary disease, unspecified; E66.9 Obesity, unspecified
CPT/HCPCS: 77336; 77385

== ENCOUNTER 2022-05-24 09:38 | Outpatient (RCR) | payer MEDICARE, OTHER | END 2022-06-17 | disposition home or self-care (01) | LOC: ONC 09:38 | PROVIDERS: ATTEND Radiology Radiation Oncology | DX: Z51.0 Encounter for antineoplastic radiation therapy (principal); C61 Malignant neoplasm of prostate; I10 Essential (primary) hypertension; I25.10 Atherosclerotic heart disease of native coronary artery without angina pectoris; I65.29 Occlusion and stenosis of unspecified carotid artery; E78.2 Mixed hyperlipidemia; J44.9 Chronic obstructive pulmonary disease, unspecified; E66.9 Obesity, unspecified | CPT/HCPCS: 77336; 77385 ==

== ENCOUNTER 2022-06-27 10:20 | Outpatient (RCR) | payer MEDICARE, OTHER | END 2022-07-17 | disposition home or self-care (01) | LOC: ONC 10:20 | PROVIDERS: ATTEND Radiology Radiation Oncology | DX: C61 Malignant neoplasm of prostate (principal); I10 Essential (primary) hypertension; I25.10 Atherosclerotic heart disease of native coronary artery without angina pectoris; E78.00 Pure hypercholesterolemia, unspecified; M19.90 Unspecified osteoarthritis, unspecified site; Z95.5 Presence of coronary angioplasty implant and graft; Z79.899 Other long term (current) drug therapy | CPT/HCPCS: 99214 ==